=== PATIENT | male | born 1955 | race Caucasian/White ===

== ENCOUNTER → 2019-06-23 13:53 | Outpatient (BNVA) | payer MEDICARE, MEDICAID, SELFPAY | PROVIDERS: Family Provider Family Medicine; PCP Family Medicine; Visit Provider Anesthesiology | DX: M51.36 Other intervertebral disc degeneration, lumbar region (principal); M54.2 Cervicalgia; M25.511 Pain in right shoulder; M25.512 Pain in left shoulder; M15.9 Polyosteoarthritis, unspecified; G56.00 Carpal tunnel syndrome, unspecified upper limb; F17.210 Nicotine dependence, cigarettes, uncomplicated; Z79.891 Long term (current) use of opiate analgesic | CPT/HCPCS: 99214 ==

== ENCOUNTER → 2019-08-12 13:12 | Outpatient (BNVA) | payer MEDICARE, MEDICAID, SELFPAY | PROVIDERS: Family Provider Family Medicine; PCP Family Medicine; Visit Provider Anesthesiology | DX: Z76.89 Persons encountering health services in other specified circumstances (principal) ==

== ENCOUNTER → 2019-10-13 09:54 | Outpatient (BNVA) | payer MEDICARE, MEDICAID, SELFPAY | PROVIDERS: Family Provider Family Medicine; PCP Family Medicine; Visit Provider Anesthesiology | DX: M54.41 Lumbago with sciatica, right side (principal); M54.42 Lumbago with sciatica, left side; M51.36 Other intervertebral disc degeneration, lumbar region; M15.9 Polyosteoarthritis, unspecified; F17.210 Nicotine dependence, cigarettes, uncomplicated; Z79.891 Long term (current) use of opiate analgesic | CPT/HCPCS: 99213; 99214 ==

== ENCOUNTER → 2019-12-16 09:00 | Outpatient (BNVA) | payer MEDICARE, MEDICAID, SELFPAY | PROVIDERS: Family Provider Family Medicine; PCP Family Medicine; Visit Provider Anesthesiology | DX: M51.36 Other intervertebral disc degeneration, lumbar region (principal); M15.9 Polyosteoarthritis, unspecified; F17.210 Nicotine dependence, cigarettes, uncomplicated; Z79.891 Long term (current) use of opiate analgesic; Z71.6 Tobacco abuse counseling | CPT/HCPCS: 99214 ==

== ENCOUNTER → 2020-02-11 14:28 | Outpatient (BNVA) | payer MEDICARE, MEDICAID, SELFPAY | PROVIDERS: Family Provider Family Medicine; PCP Family Medicine; Visit Provider Nurse Practitioner | DX: M54.42 Lumbago with sciatica, left side (principal); M54.41 Lumbago with sciatica, right side; M51.36 Other intervertebral disc degeneration, lumbar region; S16.1XXA Strain of muscle, fascia and tendon at neck level, initial encounter; X58.XXXA Exposure to other specified factors, initial encounter; M15.9 Polyosteoarthritis, unspecified; F17.210 Nicotine dependence, cigarettes, uncomplicated; Z79.891 Long term (current) use of opiate analgesic | CPT/HCPCS: 99213 ==

== ENCOUNTER → 2020-04-12 13:27 | Outpatient (BNVA) | payer MEDICARE, MEDICAID, SELFPAY | PROVIDERS: Family Provider Family Medicine; PCP Family Medicine; Visit Provider Anesthesiology | DX: M54.42 Lumbago with sciatica, left side (principal); M54.41 Lumbago with sciatica, right side; M51.36 Other intervertebral disc degeneration, lumbar region; M15.9 Polyosteoarthritis, unspecified; F17.210 Nicotine dependence, cigarettes, uncomplicated; Z79.891 Long term (current) use of opiate analgesic | CPT/HCPCS: 99213; 99214 ==

== ENCOUNTER → 2020-06-08 13:37 | Outpatient (BNVA) | payer MEDICARE, MEDICAID, SELFPAY | PROVIDERS: Family Provider Family Medicine; PCP Family Medicine; Visit Provider Anesthesiology | DX: G89.29 Other chronic pain (principal); M51.36 Other intervertebral disc degeneration, lumbar region; F17.210 Nicotine dependence, cigarettes, uncomplicated; Z79.891 Long term (current) use of opiate analgesic | CPT/HCPCS: 99213 ==

== ENCOUNTER → 2020-08-11 13:31 | Outpatient (BNVA) | payer MEDICARE, MEDICAID, SELFPAY | PROVIDERS: Family Provider Family Medicine; PCP Family Medicine; Visit Provider Anesthesiology | DX: G89.29 Other chronic pain (principal); M54.42 Lumbago with sciatica, left side; M54.41 Lumbago with sciatica, right side; M51.36 Other intervertebral disc degeneration, lumbar region; M54.9 Dorsalgia, unspecified; M54.2 Cervicalgia; M15.9 Polyosteoarthritis, unspecified; F17.210 Nicotine dependence, cigarettes, uncomplicated; Z71.6 Tobacco abuse counseling; Z79.891 Long term (current) use of opiate analgesic | CPT/HCPCS: 99214 ==

== ENCOUNTER → 2020-10-11 13:49 | Outpatient (BNVA) | payer MEDICARE, MEDICAID, SELFPAY | PROVIDERS: Family Provider Family Medicine; PCP Family Medicine; Visit Provider Anesthesiology | DX: G89.29 Other chronic pain (principal); M51.36 Other intervertebral disc degeneration, lumbar region; M54.2 Cervicalgia; M54.9 Dorsalgia, unspecified; F17.210 Nicotine dependence, cigarettes, uncomplicated; Z79.891 Long term (current) use of opiate analgesic | CPT/HCPCS: 99214 ==

== ENCOUNTER → 2020-12-08 13:55 | Outpatient (BNVA) | payer MEDICARE, MEDICAID, SELFPAY | PROVIDERS: Family Provider Family Medicine; PCP Family Medicine; Visit Provider Anesthesiology | DX: G89.29 Other chronic pain (principal); M51.36 Other intervertebral disc degeneration, lumbar region; M54.2 Cervicalgia; Z79.891 Long term (current) use of opiate analgesic | CPT/HCPCS: 99214 ==

== ENCOUNTER 2021-01-25 14:49 | Outpatient (CLI) | payer MEDICARE, MEDICAID, SELFPAY ==
--- NOTE | 2021-01-25 15:02 | XR_ITS ---
WS: [id number] XR hip BI 3-4V wo/w pel [id number] REASON FOR EXAM: BILATERAL HIP PAIN FINDINGS: Right hip joint: The right hip joint space is relatively well preserved. Mild osteophytosis of the acetabulum. Minimal subchondral sclerosis in the acetabulum. No subchondral bone abnormality in the femoral head. No bony abnormality in the remainder of the femur or within the bony pelvis. No soft tissue abnormality. Left hip joint: The left hip joint space is relatively well preserved. Mild osteophytosis of the acetabulum. Mild subchondral sclerosis in the acetabulum. No subchondral nicholas ne abnormality in the femoral head. No bony abnormality in the remainder of the femur or within the bony pelvis. XR/XR hip BI 3-4V wo/w pel [id number] IMPRESSION: Minimal arthropathy, symmetric, in the hip joints.
--- NOTE | 2021-01-25 15:02 | XR_ITS ---
WS: [id number] XR lumbar spine 2-3V* [id number] REASON FOR EXAM: CERVICALGIA/ INTERVERTEBRAL DISC DEGENERATION,LUMBAR REGION FINDINGS: Mild wedge-shaped deformity of the L1 vertebral body. No focal lumbar vertebral body lesion. Mild narrowing of the L1-L2 disc space. Moderately severe narrowing of the L5-S1 disc space. No spondylolisthesis or spondylolysis identified. XR/XR lumbar spine 2-3V* [id number] IMPRESSION: Degenerative disc disease at L1-L2 and L5-S1.
--- NOTE | 2021-01-25 15:02 | XR_ITS ---
WS: [id number] XR cervical spine 3V* [id number] REASON FOR EXAM: CHRONIC NECK PAIN/CERVICALGIA FINDINGS: No cervical vertebral body compression deformity or focal lesion. The disc space intervals are relatively well preserved. Facet joints are normal and demonstrate normal alignment. Incidentally noted are calcifications in the neck compatible with calcified plaque in the bifurcation of the common carotid arteries. XR/XR cervical spine 3V* [id number] IMPRESSION: No significant findings in the cervical spine. Calcified carotid plaque.
== END 2021-01-25 14:50 | disposition home or self-care (01) ==
LOC: RAD 14:56
PROVIDERS: PCP Family Medicine; Visit Provider Nurse Practitioner Family
DX: M54.2 Cervicalgia (principal); M25.551 Pain in right hip; M51.36 Other intervertebral disc degeneration, lumbar region; M51.37 Other intervertebral disc degeneration, lumbosacral region; I65.29 Occlusion and stenosis of unspecified carotid artery
CPT/HCPCS: 72040; 72100; 73522

== ENCOUNTER → 2021-02-02 14:31 | Outpatient (BNVA) | payer MEDICARE, MEDICAID, SELFPAY | PROVIDERS: PCP Family Medicine; Visit Provider Anesthesiology | DX: G89.29 Other chronic pain (principal); M51.36 Other intervertebral disc degeneration, lumbar region; M54.2 Cervicalgia; F17.210 Nicotine dependence, cigarettes, uncomplicated; Z79.891 Long term (current) use of opiate analgesic | CPT/HCPCS: 99214 ==

== ENCOUNTER → 2021-03-30 14:40 | Outpatient (BNVA) | payer MEDICARE, MEDICAID, SELFPAY | PROVIDERS: PCP Family Medicine; Visit Provider Anesthesiology | DX: G89.29 Other chronic pain (principal); M54.2 Cervicalgia; M15.9 Polyosteoarthritis, unspecified; M51.36 Other intervertebral disc degeneration, lumbar region; F17.210 Nicotine dependence, cigarettes, uncomplicated; Z79.891 Long term (current) use of opiate analgesic | CPT/HCPCS: 99214 ==

== ENCOUNTER 2021-04-14 13:08 | Outpatient (CLI) | payer MEDICARE, MEDICAID, SELFPAY ==
--- NOTE | 2021-04-14 13:13 | XR_ITS ---
WS: [id number] Thoracic spine, 3 views, 04/14/2021 Clinical Data: THORACIC SPRAIN Comparison: None. Findings: No compression fractures are seen. The disc heights are normal. Midline sternotomy sutures and mediastinal clips are present. The paravertebral regions are normal. XR/XR thoracic spine 2V [id number] Impression: Negative thoracic spine.
--- NOTE | 2021-04-14 13:13 | XR_ITS ---
WS: [id number] Cervical spine, lateral views, AP and odontoid views, both obliques, 04/14/2021 . Clinical Data: CERVICAL STRAIN Comparison: None. Findings: No compression fractures are seen. The disc heights are normal. Minimal osteoarthritis at t he anterior aspect of C5 is seen. There is no prevertebral soft tissue swelling. The odontoid is unre markable. The soft tissues of the neck and the lung apices are normal. The oblique films show no spon dylolysis. There is calcification at the level of the carotid bifurcations. XR/XR cervical spine 4-5V [id number] Impression: 1. Minimal C5 osteoarthritis. 2. Minimal calcification at both carotid bifurcations.
== END 2021-04-14 13:09 | disposition home or self-care (01) ==
LOC: RAD 13:11
PROVIDERS: PCP Family Medicine; Visit Provider Nurse Practitioner Family
DX: M54.6 Pain in thoracic spine (principal); M47.812 Spondylosis without myelopathy or radiculopathy, cervical region; I65.23 Occlusion and stenosis of bilateral carotid arteries
CPT/HCPCS: 72050; 72070

== ENCOUNTER → 2021-06-08 13:46 | Outpatient (BNVA) | payer MEDICARE, MEDICAID, SELFPAY | PROVIDERS: PCP Family Medicine; Visit Provider Anesthesiology | DX: G89.29 Other chronic pain (principal); M54.2 Cervicalgia; M54.50 Low back pain, unspecified; Z79.891 Long term (current) use of opiate analgesic; Z87.891 Personal history of nicotine dependence | CPT/HCPCS: 99214 ==

== ENCOUNTER 2021-12-06 14:20 | Inpatient (IN) | payer MEDICARE, MEDICAID, SELFPAY ==
[2021-12-06] VITALS (7 sets, daily range): BP systolic 130–185; BP diastolic 74–83; PULSE 71–91; RESP 16–18; TEMP 36.6–36.9; O2SAT 98–99; BMI 22.8
--- NOTE | 2021-12-06 14:30 | CTR_ITS ---
PROCEDURE INFORMATION: Exam: CT Abdomen And Pelvis With Contrast Exam date and time: 12/06/2021 5:29 PM Age: 66 years old Clinical indication: Abdominal pain; Generalized; Prior surgery; Additional info: Abd pain TECHNIQUE: Imaging protocol: Computed tomography of the abdomen and pelvis with contrast. Radiation optimization: All CT scans at this facility use at least one of these dose optimization techniques: automated exposure control; mA and/or kV adjustment per patient size (includes targeted exams where dose is matched to clinical indication); or iterative reconstruction. Contrast material: OMNI 350; Contrast volume: 95 ml; Contrast route: INTRAVENOUS (IV); COMPARISON: CT Abdomen/Pelvis Renal [id number] 07/22/2017 8:10 AM RADIATION DOSE METRICS: Total DLP (mGy-cm): 569.08 FINDINGS: Pleural spaces: Interval appearance of mild to moderate left pleural fluid collection. Heart: Stable severe calcified coronary artery disease. Liver: Hepatic cirrhosis morphology with nodular contour and/or caudate lobe enlargement and/or left lobe enlargement. Interval appearance of radiographic cirrhosis. Gallbladder and bile ducts: Normal. No calcified stones. No ductal dilation. Pancreas: Normal. No ductal dilation. Spleen: Calcified splenic granulomas. 16.2 cm moderate to large splenomegaly. Adrenal glands: Normal. No mass. Kidneys and ureters: Normal. No hydronephrosis. Stomach and bowel: Unremarkable. No obstruction. No mucosal thickening. Appendix: No evidence of appendicitis. Intraperitoneal space: Mild to moderate four-quadrant ascites. Vasculature: 12 mm portal vein. Calcification of the abdominal aorta and/or iliac arteries consistent with atherosclerotic vessel disease. Lymph nodes: Unremarkable. No enlarged lymph nodes. Urinary bladder: Unremarkable as visualized. Reproductive: Unremarkable as visualized. Bones/joints: Previous sternotomy. Soft tissues: Right inguinal hernia containing ascites. CT/CT abdomen pelvis w con* [id number] IMPRESSION: 1. Interval appearance of mild to moderate left pleural fluid collection. 2. Interval appearance of radiographic cirrhosis with [id number]-[id number] ascites and moderate to large 16.2 cm splenomegaly.
--- NOTE | 2021-12-06 14:31 | W.ED.ABDPA2 ---
Documented by User: Bucky Malloy DO 12/12/21 07:08 HPI - Abdominal Pain General: Chief Complaint: Abdominal Pain Stated Complaint: Abd pain Time Seen by Provider: 12/06/21 14:29 Source: patient Mode of arrival: ambulatory Limitations: no limitations History of Present Illness: 66-year-old male who presents to the emergency room with complaints of abdominal pain. He was seen earlier today Dr. Rockwell office with complaints of right inguinal pain intermittently for the last 3 weeks, much worse in the last 3 to 4 days.. On arrival there he had a right inguinal's distended mass that was exquisitely tender with a very tender abdomen. He had good bowel sounds however and had a bowel movement a few hours earlier. Dr. Rockwell position him in a gxab-qs-hocve position had him remain in that position for a period of time he spontaneously reduced his hernia and the abdominal distention present on arrival at the clinic resolved. He is had significant relief of symptoms and since as well. He had a left inguinal hernia repaired by Dr. Gilman within the last year. Dr. Rockwell talk to Dr. Robins about this patient and Dr. Wills advised to get further evaluation including advanced imaging to see if he would if there was any signs of bowel injury or edema might indicate earlier intervention for repair of hernia. MD elicited complaint: abdominal pain Pertinent past history: other (Right inguinal hernia) Onset (ago): week(s) Pain Consistency: intermittent Location: Diffuse Severity: severe Quality: cramping Radiation: none Exacerbating factors: nothing Relieving factors: nothing Associated Symptoms: Denies bloating, chills, coffee ground emesis, constipation, diarrhea, dysuria, fever(s), hematochezia, hematemesis, melena, nausea and vomiting Review of Systems Const: Denies: fever(s), chills, body aches, change in appetite, fatigue or malaise ENMT: Denies: throat pain, ear or mastoid pain, nasal discharge or nasal congestion Card: Denies: chest pain, edema, dyspnea on exertion or orthopnea Resp: Denies: dyspnea, productive cough or non-productive cough GI: Reports: abdominal pain; Denies: nausea, vomiting, hematemesis, coffee ground emesis, diarrhea, constipation, bloating, hematochezia or melena : Denies: flank pain, difficulty urinating, dysuria, urinary frequency or urinary urgency Skin/Breast: Denies: rash or pruritus PFSH ED PFSH: Medical History CAD (coronary artery disease) Carpal tunnel syndrome Chronic low back pain Chronic neck and back pain Cigarette smoker motivated to quit Controlled type 2 diabetes mellitus with diabetic neuropathy DDD (degenerative disc disease), lumbar Encounter for long-term opiate analgesic use Generalized osteoarthritis Genital warts on topical treatment with imiquimod H/O: HTN (hypertension) History of asthma Hx of acute arthritis Hx of diabetes mellitus Neck pain Surgical History Hx of angioplasty Hx of coronary artery bypass surgery Family History Other CAD (coronary artery disease) Diabetes Hypertension Social History Smoking and tobacco status: former smoker (2 weeks ago) Second hand smoke exposure: No Alcohol intake: former History of recent travel: No Physical Exam Const: GENERAL APPEARANCE: cooperative and comfortable ORIENTATION/CONSCIOUSNESS: Yes awake, Yes oriented to person, Yes oriented to place and Yes oriented to time HENMT: COMMON NORMALS: normocephalic, atraumatic and hearing grossly normal bilaterally HEAD & SCALP: normocephalic and atraumatic Resp: COMMON NORMALS: normal respiratory effort, No retractions, No use of accessory muscles and clear to auscultation bilaterally AUSCULTATION: clear to auscultation bilaterally Cardio: COMMON NORMALS: regular rate, regular rhythm and No murmurs present (Cardio) RATE: regular rate RHYTHM: regular rhythm GI: COMMON NORMALS: Soft to palpation and No hepatosplenomegaly present AUSCULTATION: Yes normoactive bowel sounds PALPATION: Yes Soft to palpation, No Tenderness to palpation present (GI), No Guarding due to palpation present (GI) and Yes No hepatosplenomegaly present Extremity: COMMON NORMALS: normal to inspection, capillary refill normal, no clubbing, cyanosis or edema, no calf tenderness and no pedal edema Neuro: SENSORIUM/ORIENTATION: Yes oriented to person, Yes oriented to place and Yes oriented to time Skin: COMMON NORMALS: no rashes or lesions noted GENERAL SKIN EXAM: no rashes or lesions noted Course Vital Signs: Vital signs: Vital Signs Temperature 98.4 F 12/06/21 23:10 Pulse Rate 91 12/06/21 23:10 Respiratory Rate 18 12/06/21 23:10 Blood Pressure 130/79 12/06/21 23:10 Pulse Oximetry 98 12/06/21 23:10 Oxygen Delivery Me thod 12/06/21 23:10 MDM - Abdominal Pain Medical Decision Making Hernia resolved the time patient arrived here which is what Dr. Rockwell is described. CT is pending radiology read appears to have a fair amount of ascites. Pending results. Once radiologist read the CT Dr. Cormier will make disposition for the patient. See his notes. 66-year-old male presents here with abdominal pain he does have inguinal hernia along with ascites CT shows no signs of strangulation. Patient is stable for discharge is to follow-up PCP and return if worsening. Medical Records I reviewed the patient's medical records. Lab Data I reviewed the patient's lab results. : 12/06/21 15:07 12/06/21 15:07 Labs/Radiology: Radiology Impressions Abdomen/Pelvis CT 12/06/21 14:30 IMPRESSION: 1. Interval appearance of mild to moderate left pleural fluid collection. 2. Interval appearance of radiographic cirrhosis with dolf-[id number]-bsjlsezq ascites and moderate to large 16.2 cm splenomegaly. Laboratory Results WBC 8.0 10^3/uL (4.0-10.0) 12/06/21 15:07 RBC 4.70 10^6/uL (4.1-5.3) 12/06/21 15:07 Hgb 14.9 g/dL (11.7-16.6) 12/06/21 15:07 Hct 46.3 % (42.0-52.0) 12/06/21 15:07 MCV 98.5 fl (80-94) H 12/06/21 15:07 MCH 31.7 pg (28.0-34.0) 12/06/21 15:07 MCHC 32.2 g/dL (30.0-36.0) 12/06/21 15:07 RDW 14.0 % (12.1-15.1) 12/06/21 15:07 Plt Count 99 10^3/cmm (130-400) L 12/06/21 15:07 MPV 11.6 fL (7.4-10.4) H 12/06/21 15:07 Neut % (Auto) 73.4 % 12/06/21 15:07 Lymph % (Auto) 16.2 % 12/06/21 15:07 [place] % (Auto) 7.2 % 12/06/21 15:07 Eos % (Auto) 2.1 % 12/06/21 15:07 Baso % (Auto) 0.6 % 12/06/21 15:07 Neut # (Auto) 5.85 10^3/uL (1.8-7.7) 12/06/21 15:07 Lymph # (Auto) 1.3 10^3/uL (0.8-4.8) 12/06/21 15:07 [place] # (Auto) 0.6 10^3/uL (0.2-0.9) 12/06/21 15:07 Eos # (Auto) 0.2 10^3/uL (0.0-0.8) 12/06/21 15:07 Baso # (Auto) 0.1 10^3/uL (0.0-0.1) 12/06/21 15:07 Nucleated RBC % (auto) 0 % 12/06/21 15:07 Nucleated RBCs # 0.0 /100WBC 12/06/21 15:07 Sodium 138 mmol/L (136-145) 12/06/21 15:07 Potassium 5.3 mmol/L (3.5-5.1) H 12/06/21 15:07 Chloride 102 mmol/L (98-107) 12/06/21 15:07 Carbon Dioxide 26 mmol/L (22-29) 12/06/21 15:07 Anion Gap 15.3 (5-19) 12/06/21 15:07 BUN 18 mg/dL (8-23) 12/06/21 15:07 Creatinine 0.6 mg/dL (0.7-1.2) L 12/06/21 15:07 GFR Calculation 135.2 mL/min (90-130) H 12/06/21 15:07 Glucose 217 mg/dL (65-115) H 12/06/21 15:07 Calculated Osmolality 294 mOsm/kg (285-295) 12/06/21 15:07 Lactic Acid 1.5 mmol/L (0.5-2.2) 12/06/21 15:07 Calcium 9.6 mg/dL (8.5-10.5) 12/06/21 15:07 Total Bilirubin 2.5 mg/dL (0.15-1.2) H 12/06/21 15:07 AST 94 U/L (0-40) H 12/06/21 15:07 ALT 56 U/L (0-41) H 12/06/21 15:07 Alkaline Phosphatase 698 IU/L (40-130) H 12/06/21 15:07 Total Protein 7.5 g/dL (6.6-8.7) 12/06/21 15:07 Albumin 3.7 g/dL (3.5-5.2) 12/06/21 15:07 Globulin 3.8 g/dL (1.3-4.6) 12/06/21 15:07 Urine Color Svetlana (Yellow) 12/06/21 14:58 Urine Appearance Clear (CLEAR) 12/06/21 14:58 Urine pH 5 (5-7) 12/06/21 14:58 Ur Specific [place] 1.015 (1.005-1.030) 12/06/21 14:58 Urine Protein Neg (Negative) 12/06/21 14:58 Urine Glucose (UA) 4+ (Normal) H 12/06/21 14:58 Urine Ketones Negative (Negative) 12/06/21 14:58 Urine Blood Neg (Negative) 12/06/21 14:58 Urine Nitrate Negative (Negative) 12/06/21 14:58 Urine Bilirubin 1+ (Negative) H 12/06/21 14:58 Urine Urobilinogen 1 mg/dL (Negative) H 12/06/21 14:58 Ur Leukocyte Esterase Negative (Negative) 12/06/21 14:58 Discharge Plan Discharge Patient Disposition: Admitted As Inpatient Admit Provider: Mere Naqvi Clinical Impression: Abdominal pain, Ascites Condition: Stable Coding Level of Care Code ED Bilingual Research Interviewer for Chg Fwd Exam Detailed Documented by User: Rachelle Cormier MD 12/06/21 21:42 HPI - Abdominal Pain General: Chief Complaint: Abdominal Pain Stated Complaint: Abd pain Time Seen by Provider: 12/06/21 14:29 PFSH ED PFSH: Medical History CAD (coronary artery disease) Carpal tunnel syndrome Chronic low back pain Chronic neck and back pain Cigarette smoker motivated to quit Controlled type 2 diabetes mellitus with diabetic neuropathy DDD (degenerative disc disease), lumbar Encounter for long-term opiate analgesic use Generalized osteoarthritis Genital warts on topical treatment with imiquimod H/O: HTN (hypertension) History of asthma Hx of acute arthritis Hx of diabetes mellitus Neck pain Surgical History Hx of angioplasty Hx of coronary artery bypass surgery Family History Other CAD (coronary artery disease) Diabetes Hypertension Social History Smoking and tobacco status: former smoker (2 weeks ago) Second hand smoke exposure: No Alcohol intake: former History of recent travel: No Course Vital Signs: Vital signs: Vital Signs Temperature 98.4 F 12/06/21 23:10 Pulse Rate 91 12/06/21 23:10 Respiratory Rate 18 12/06/21 23:10 Blood Pressure 130/79 12/06/21 23:10 Pulse Oximetry 98 12/06/21 23:10 Oxygen Delivery Me thod 12/06/21 23:10 MDM - Abdominal Pain Medical Decision Making 66-year-old male presents here with abdominal pain he does have inguinal hernia along with ascites CT shows no signs of strangulation. Patient is stable for discharge is to follow-up PCP and return if worsening. Lab Data : 12/06/21 15:07 12/06/21 15:07 Labs/Radiology: Radiology Impressions Abdomen/Pelvis CT 12/06/21 14:30 IMPRESSION: 1. Interval appearance of mild to moderate left pleural fluid collection. 2. Interval appearance of radiographic cirrhosis with gtkm-ii-lzdolmyn ascites and moderate to large 16.2 cm splenomegaly. Laboratory Results WBC 8.0 10^3/uL (4.0-10.0) 12/06/21 15:07 RBC 4.70 10^6/uL (4.1-5.3) 12/06/21 15:07 Hgb 14.9 g/dL (11.7-16.6) 12/06/21 15:07 Hct 46.3 % (42.0-52.0) 12/06/21 15:07 MCV 98.5 fl (80-94) H 12/06/21 15:07 MCH 31.7 pg (28.0-34.0) 12/06/21 15:07 MCHC 32.2 g/dL (30.0-36.0) 12/06/21 15:07 RDW 14.0 % (12.1-15.1) 12/06/21 15:07 Plt Count 99 10^3/cmm (130-400) L 12/06/21 15:07 MPV 11.6 fL (7.4-10.4) H 12/06/21 15:07 Neut % (Auto) 73.4 % 12/06/21 15:07 Lymph % (Auto) 16.2 % 12/06/21 15:07 [place] % (Auto) 7.2 % 12/06/21 15:07 Eos % (Auto) 2.1 % 12/06/21 15:07 Baso % (Auto) 0.6 % 12/06/21 15:07 Neut # (Auto) 5.85 10^3/uL (1.8-7.7) 12/06/21 15:07 Lymph # (Auto) 1.3 10^3/uL (0.8-4.8) 12/06/21 15:07 [place] # (Auto) 0.6 10^3/uL (0.2-0.9) 12/06/21 15:07 Eos # (Auto) 0.2 10^3/uL (0.0-0.8) 12/06/21 15:07 Baso # (Auto) 0.1 10^3/uL (0.0-0.1) 12/06/21 15:07 Nucleated RBC % (auto) 0 % 12/06/21 15:07 Nucleated RBCs # 0.0 /100WBC 12/06/21 15:07 Sodium 138 mmol/L (136-145) 12/06/21 15:07 Potassium 5.3 mmol/L (3.5-5.1) H 12/06/21 15:07 Chloride 102 mmol/L (98-107) 12/06/21 15:07 Carbon Dioxide 26 mmol/L (22-29) 12/06/21 15:07 Anion Gap 15.3 (5-19) 12/06/21 15:07 BUN 18 mg/dL (8-23) 12/06/21 15:07 Creatinine 0.6 mg/dL (0.7-1.2) L 12/06/21 15:07 GFR Calculation 135.2 mL/min (90-130) H 12/06/21 15:07 Glucose 217 mg/dL (65-115) H 12/06/21 15:07 Calculated Osmolality 294 mOsm/kg (285-295) 12/06/21 15:07 Lactic Acid 1.5 mmol/L (0.5-2.2) 12/06/21 15:07 Calcium 9.6 mg/dL (8.5-10.5) 12/06/21 15:07 Total Bilirubin 2.5 mg/dL (0.15-1.2) H 12/06/21 15:07 AST 94 U/L (0-40) H 12/06/21 15:07 ALT 56 U/L (0-41) H 12/06/21 15:07 Alkaline Phosphatase 698 IU/L (40-130) H 12/06/21 15:07 Total Protein 7.5 g/dL (6.6-8.7) 12/06/21 15:07 Albumin 3.7 g/dL (3.5-5.2) 12/06/21 15:07 Globulin 3.8 g/dL (1.3-4.6) 12/06/21 15:07 Urine Color Svetlana (Yellow) 12/06/21 14:58 Urine Appearance Clear (CLEAR) 12/06/21 14:58 Urine pH 5 (5-7) 12/06/21 14:58 Ur Specific [place] 1.015 (1.005-1.030) 12/06/21 14:58 Urine Protein Neg (Negative) 12/06/21 14:58 Urine Glucose (UA) 4+ (Normal) H 12/06/21 14:58 Urine Ketones Negative (Negative) 12/06/21 14:58 Urine Blood Neg (Negative) 12/06/21 14:58 Urine Nitrate Negative (Negative) 12/06/21 14:58 Urine Bilirubin 1+ (Negative) H 12/06/21 14:58 Urine Urobilinogen 1 mg/dL (Negative) H 12/06/21 14:58 Ur Leukocyte Esterase Negative (Negative) 12/06/21 14:58 Discharge Plan Discharge Patient Disposition: Admitted As Inpatient Admit Provider: Mere Naqvi Clinical Impression: Abdominal pain, Ascites Condition: Stable Coding Level of Care Code ED Bilingual Research Interviewer for Chg Fwd Exam Detailed
[2021-12-06 15:07] LABS: Add Urine Microscopic? NO; Charge for UA Resulting for Rev
[2021-12-06 15:24] LABS: Basophils # 0.1 10^3/uL (0.0-0.1); Basophils % 0.6 %; Eosinophils # 0.2 10^3/uL (0.0-0.8); Eosinophils % 2.1 %; Hematocrit 46.3 % (42.0-52.0); Hemoglobin 14.9 g/dL (11.7-16.6); Lymphocytes # 1.3 10^3/uL (0.8-4.8); Lymphocytes % 16.2 %; Mean Corpuscular HGB Conc 32.2 g/dL (30.0-36.0); Mean Corpuscular Hemoglobin 31.7 pg (28.0-34.0); Mean Corpuscular Volume 98.5 fl (80-94); Mean Platelet Volume 11.6 fL (7.4-10.4); Monocytes # 0.6 10^3/uL (0.2-0.9); Monocytes % 7.2 %; Neutrophils # 5.85 10^3/uL (1.8-7.7); Neutrophils % 73.4 %; Nucleated Red Blood Cells % 0 %; Platelet Count 99 10^3/cmm (130-400)
[2021-12-06 15:29] LABS: Bilirubin Urine 1+ (Negative); Blood Urine Neg (Negative); Glucose Urine UA 4+ (Normal); Ketones Urine Negative (Negative); Leukocyte Esterase Urine Negative (Negative); Nitrate Urine Negative (Negative); Protein Urine Neg (Negative); Specific Gravity, Urine 1.015 (1.005-1.030); Urine Appearance Clear (CLEAR); Urine Color Amber (Yellow); Urobilinogen Urine 1 mg/dL (Negative); pH Urine 5 (5-7)
[2021-12-06 15:40] LABS: Lactic Sepsis W/Reflex 1.5 mmol/L (0.5-2.2)
[2021-12-06 15:48] LABS: Albumin Level 3.7 g/dL (3.5-5.2); Alkaline Phosphatase 698 IU/L (40-130); Blood Urea Nitrogen 18 mg/dL (8-23); Calcium 9.6 mg/dL (8.5-10.5); Carbon Dioxide 26 mmol/L (22-29); Chloride 102 mmol/L (98-107); Globulin 3.8 g/dL (1.3-4.6); Glomerular Filtration Rate 135.2 mL/min (90-130); Glucose 217 mg/dL (65-115); Osmolality Calculated 294 mOsm/kg (285-295); Sodium 138 mmol/L (136-145); Total Bilirubin 2.5 mg/dL (0.15-1.2); Total Protein 7.5 g/dL (6.6-8.7)
[2021-12-06 15:49] LABS: Creatinine Clr Calc Pharmacy 88.8745
[2021-12-06 15:50] LABS: Alanine Aminotransferase 56 U/L (0-41); Anion Gap 15.3 (5-19); Aspartate Amino Transferase 94 U/L (0-40); Potassium 5.3 mmol/L (3.5-5.1)
[2021-12-06] MEDS: diphenhydrAMINE 50 mg/mL SDV 1mL IVP (17:09)
[2021-12-06] MEDS: iohexol 350 mg/mL 100 mL Btl IV (17:32)
[2021-12-06] MEDS: morphine 4 mg/mL SDV 1 mL IVP (19:28)
--- NOTE | 2021-12-06 22:08 | USCV_ITS ---
Altaf Rascon Age: 66 Gender: M : 1955 Exam Date: 12/06/2021 23:22 Ordering Phys: Mere Naqvi MD Technologist: ZACHERY [place] [facility] [place]: evaluate for right heart failure BP: 182 / 78 HR: 91 Rhythm: Sinus Technical Quality: Adequate MEASUREMENTS (Male / Female) Normal Values 2D ECHO LV Diastolic Diameter PLAX 4.8 cm 4.2 - 5.9 / 3.9 - 5.3 cm LV Systolic Diameter PLAX 2.9 cm IVS Diastolic Thickness 0.9 cm 0.6 - 1.0 / 0.6 - 0.9 cm IVS Systolic Thickness 1.6 cm LVPW Diastolic Thickness 1.0 cm 0.6 - 1.0 / 0.6 - 0.9 cm LVPW Systolic Thickness 1.4 cm LVOT Diameter 1.9 cm LV Ejection Fraction 2D Teich 70.1 % LV Ejection Fraction MOD 2C 77.0 % LV Ejection Fraction 2C AL 78.9 % LA Diameter 4.6 cm LA Width 3.6 cm LA Height 5.5 cm RA Width 2.8 cm RA Height 4.2 cm Aorta at Sinotubular Diameter 3.1 cm IVC Diameter 1.1 cm M-MODE Aortic Annulus Diameter 3.4 cm LA Ao Ratio MM 1.3 MV E Point Septal Separation 0.2 cm DOPPLER AV Peak Velocity 145.0 cm/s LVOT Peak Velocity 93.0 cm/s AV Area Cont Eq vti 1.7 cm squared AV Area Cont Eq pk 1.9 cm squared MV Area PHT 3.7 cm squared Mitral E to A Ratio 1.0 MV E' Velocity 59.0 cm/s Mitral E to MV E' Ratio 10.7 Mitral E to LV E' Lateral Ratio 8.1 Mitral E to LV E' Septal Ratio 15.5 TR Peak Velocity 275.0 cm/s TR Peak Gradient 30.3 mmHg TV Peak E Velocity 75.0 cm/s Right Atrial Pressure 5.0 mmHg Pulmonary Artery Systolic Pressu 35.3 mmHg PV Peak Velocity 120.0 cm/s RV Acceleration Time 0.2 s RV Ejection Time 0.4 s RV AcT/ET 0.4 FINDINGS Left Ventricle Normal left ventricular size and systolic function, EF 73 %. Mild left ventricular hypertrophy. Relative hypokinesia of the septum. Frequency and the duration of these episodes have not changed.Grade II/IV diastolic dysfunction, moderately elevated filling pressures. Right Ventricle Normal right ventricular size and systolic function. Right Atrium The right atrium is normal in size. Left Atrium The left atrium is normal in size. Mitral Valve No gross abnormalities noted Aortic Valve Thickened aortic valve. Tricuspid Valve Trace tricuspid valve regurgitation. Estimated pulmonary artery peak systolic pressure 35 mmHg Pulmonic Valve No gross abnormalities noted Pericardium Normal pericardium without effusion. Aorta Normal aortic annulus size. IVC Normal inferior vena cava. CONCLUSIONS Normal left ventricular size and systolic function, EF 73 %. Mild left ventricular hypertrophy. Grade II/IV diastolic dysfunction, moderately elevated filling pressures. Wall motion normalities as mentioned above. Normal right ventricular size and ejection fraction Thickened aortic valve. Trace tricuspid valve regurgitation. Estimated pulmonary artery peak systolic pressure 35 mmHg There is no pericardial effusion. There are no intracardiac masses. No similar previous studies are available for comparison Dr Nell Hilton MD [facility] (Electronically Signed) Final Date: 07 December 2021 19:13 S
--- NOTE | 2021-12-06 22:15 | PM.HP ---
Providers/Chief Complaint Admitting Physician: Mere Naqvi MD Primary Care Provider: Nathan Torres MD Chief Complaint: Abd pain History of Present Illness Altaf Rascon is a 66 year old male who developed abdominal pain today and presented to his PCPs office where he was noted to have a right inguinal hernia which was not easily reducible and quite painful. He was positioned in a [id number] position and ultimately the hernia was able to be reduced and patient was sent into the emergency room for abdominal imaging. He also was noted to have abdominal distention. Patient states he has been having increasing abdominal distention for the past couple of weeks but this has been waxing and waning independent of his inguinal hernia. CT of the abdomen was performed which showed a right inguinal hernia containing ascites and new findings of liver cirrhosis, portal hypertension, mild to moderate four-quadrant ascites and a left-sided pleural effusion. There was no ascites on last abdominal ultrasound dating back to 2019. Patient has had elevated LFTs for at least the past 3 to 4 years, no definite cause has been found for the same. Patient denies any current alcohol intake. States he has a history of alcohol dependence however quit drinking alcohol 15 years ago. His last drink was a beer 2 months ago. Denies any daily alcohol consumption. He follows with pain management and is currently on Percocet for pain management. He has previously used up to 3 to 4 g of Tylenol on a daily basis for pain. Has past medical history is significant for coronary artery disease, history of recurrent in-stent stenosis, CABG in 2016. He follows with Dr. Quintero in [place]. Does not know his last ejection fraction but states he has never previously been diagnosed with congestive heart failure. He is scheduled to undergo a stress test in the next few days, reportedly this was being planned for cardiac clearance prior to a colonoscopy with Dr. Gilman. No history of hemochromatosis or autoimmune disorder. Strong family history of colon cancer in multiple relatives. He is pending a colonoscopy. FOBT as outpatient has recently been positive. Gallbladder and bile ducts are noted to be normal without ductal dilatation. No pancreatic mass is additionally noted on the CT of the abdomen and pelvis today. Review of Systems General: Reports: 10 or more systems reviewed and unremarkable except in HPI and below Const: Denies: fever(s), chills or body aches Eyes: Denies: change in vision, blurry vision or photophobia ENMT: Reports: hoarseness; Denies: throat pain, enlarged tonsils, odynophagia or nasal congestion Card: Denies: chest pain, palpitations, irregular heart rhythm, edema, swelling of feet/ankles, lightheadedness, pre-syncope, dyspnea on exertion or orthopnea Resp: Denies: dyspnea, productive cough, non-productive cough, wheezing, stridor, pain on inspiration, change in phlegm color, hemoptysis or chest congestion GI: Denies: abdominal pain, nausea, vomiting, hematemesis, coffee ground emesis, dysphagia, heartburn, diarrhea, constipation, GI cramping, change in stool character, hematochezia or melena : Denies: flank pain, dysuria, urinary frequency, urinary urgency, urinary hesitancy or hematuria Musc: Denies: neck pain, back pain, extremity pain, joint swelling, joint warmth or deformity Neuro: Denies: headache(s), numbness in extremities, weakness in extremities, sensory changes, difficulty walking, frequent falls, dizziness, vertigo, behavioral changes, Slurred speech present or seizure-like activity Psych: Denies: anxiety, depression, suicidal ideation or homicidal ideation Endo: Denies: polyuria, polydipsia, tired all the time, cold intolerance or hot flashes Wilfredo/Lymph: Denies: easy bruising or easy bleeding Medications/Allergies Home Medications Medication Instructions Recorded Confirmed Last Taken Type aspirin 81 mg tablet,delayed 81 mg PO DAILY 06/23/19 12/06/21 12/06/21 08:00 History release glipizide 5 mg tablet, extended 5 mg PO DAILY 06/23/19 12/06/21 12/06/21 08:00 History release 24 hr sitagliptin 100 mg tablet (Januvia) 100 mg PO DAILY 06/23/19 12/06/21 12/06/21 08:00 History gabapentin 400 mg capsule 400 mg PO TID 30 days #90 caps 06/08/21 12/06/21 12/06/21 12:00 Rx alprazolam 0.5 mg tablet 0.25 - 0.5 mg PO Q8H PRN Anxiety 12/06/21 12/06/21 12/06/21 08:00 History atorvastatin 10 mg tablet 10 mg PO BEDTIME 12/06/21 12/06/21 12/05/21 21:00 History cetirizine 10 mg tablet 10 mg PO DAILY 12/06/21 12/06/21 12/06/21 08:00 History cyclobenzaprine 5 mg tablet 5 mg PO TID PRN Muscle Spasm 12/06/21 12/06/21 12/06/21 12:00 History dexlansoprazole 60 mg 60 mg PO BEDTIME 12/06/21 12/06/21 12/05/21 21:00 History capsule,biphase delayed release (Dexilant) fluticasone 250 mcg-salmeterol 50 1 inh inhalation BID 12/06/21 12/06/21 12/06/21 08:00 History mcg/dose blistr powdr for inhalation (Wixela Inhub) hydrocodone 10 mg-acetaminophen 1 tab PO Q4H PRN Pain 12/06/21 12/06/21 12/06/21 12:00 History 325 mg tablet montelukast 10 mg tablet 10 mg PO DAILY 12/06/21 12/06/21 12/06/21 08:00 History nitroglycerin 0.4 mg sublingual 0.4 mg sublingual PRN PRN Chest 12/06/21 12/06/21 Unknown History tablet Pain Allergies Allergy/AdvReac Type Severity Reaction Status Date / Time doxycycline Allergy ADR-Vomitin Verified 06/08/21 13:59 g metformin Allergy Unknown Verified 06/08/21 13:59 pantoprazole Allergy Unknown Verified 06/08/21 13:59 PFSH Acute PFSH: Medical History (Updated 12/07/21 @ 02:15 by Mere Naqvi MD) CAD (coronary artery disease) Carpal tunnel syndrome Chronic low back pain Chronic neck and back pain Cigarette smoker motivated to quit Controlled type 2 diabetes mellitus with diabetic neuropathy DDD (degenerative disc disease), lumbar Encounter for long-term opiate analgesic use Generalized osteoarthritis Genital warts on topical treatment with imiquimod H/O: HTN (hypertension) History of asthma Hx of acute arthritis Hx of diabetes mellitus Neck pain Surgical History Hx of angioplasty Hx of coronary artery bypass surgery Family History Other CAD (coronary artery disease) Diabetes Hypertension Social History Smoking and tobacco status: former smoker (2 weeks ago) Second hand smoke exposure: No Alcohol intake: former History of recent travel: No Vitals/I&O/Wt Last Vital Signs Temp 98.3 F 12/06/21 21:49 Pulse 91 12/06/21 21:49 Resp 18 12/06/21 21:49 BP 182/78 12/06/21 21:52 Pulse Ox 98 12/06/21 21:49 O2 Del Method 12/06/21 21:49 Weight last 48 hrs Weight 68.039 kg Physical Exam Narrative: General: No acute distress, AO x3 HEENT: PERRLA, pupils bilaterally equal and reactive, pallors not present Chest: Normal vesicular breath sounds, no added sounds, equal good air entry bilaterally CVS: S1-S2 regular, systolic murmur + Abdomen: Soft, distended, bowel sounds present, noted right inguinal hernia, no local erythema however reports tenderness on palpation. Neuro: No focal deficits, no facial deformity, AO x3, power 5/5 in all limbs Extremities:no edema, clubbing or cyanosis Data : 12/06/21 15:07 12/06/21 15:07 Other Labs: Radiology Impressions Abdomen/Pelvis CT 12/06/21 14:30 IMPRESSION: 1. Interval appearance of mild to moderate left pleural fluid collection. 2. Interval appearance of radiographic cirrhosis with [id number] ascites and moderate to large 16.2 cm splenomegaly. Laboratory Results WBC 8.0 10^3/uL (4.0-10.0) 12/06/21 15:07 RBC 4.70 10^6/uL (4.1-5.3) 12/06/21 15:07 Hgb 14.9 g/dL (11.7-16.6) 12/06/21 15:07 Hct 46.3 % (42.0-52.0) 12/06/21 15:07 MCV 98.5 fl (80-94) H 12/06/21 15:07 MCH 31.7 pg (28.0-34.0) 12/06/21 15:07 MCHC 32.2 g/dL (30.0-36.0) 12/06/21 15:07 RDW 14.0 % (12.1-15.1) 12/06/21 15:07 Plt Count 99 10^3/cmm (130-400) L 12/06/21 15:07 MPV 11.6 fL (7.4-10.4) H 12/06/21 15:07 Neut % (Auto) 73.4 % 12/06/21 15:07 Lymph % (Auto) 16.2 % 12/06/21 15:07 [place] % (Auto) 7.2 % 12/06/21 15:07 Eos % (Auto) 2.1 % 12/06/21 15:07 Baso % (Auto) 0.6 % 12/06/21 15:07 Neut # (Auto) 5.85 10^3/uL (1.8-7.7) 12/06/21 15:07 Lymph # (Auto) 1.3 10^3/uL (0.8-4.8) 12/06/21 15:07 [place] # (Auto) 0.6 10^3/uL (0.2-0.9) 12/06/21 15:07 Eos # (Auto) 0.2 10^3/uL (0.0-0.8) 12/06/21 15:07 Baso # (Auto) 0.1 10^3/uL (0.0-0.1) 12/06/21 15:07 Nucleated RBC % (auto) 0 % 12/06/21 15:07 Nucleated RBCs # 0.0 /100WBC 12/06/21 15:07 PT 15.10 SECONDS (12.1-14.9) H 12/06/21 23:08 INR 1.15 (0.8-1.2) 12/06/21 23:08 Sodium 138 mmol/L (136-145) 12/06/21 15:07 Potassium 5.3 mmol/L (3.5-5.1) H 12/06/21 15:07 Chloride 102 mmol/L (98-107) 12/06/21 15:07 Carbon Dioxide 26 mmol/L (22-29) 12/06/21 15:07 Anion Gap 15.3 (5-19) 12/06/21 15:07 BUN 18 mg/dL (8-23) 12/06/21 15:07 Creatinine 0.6 mg/dL (0.7-1.2) L 12/06/21 15:07 GFR Calculation 135.2 mL/min (90-130) H 12/06/21 15:07 Glucose 217 mg/dL (65-115) H 12/06/21 15:07 Calculated Osmolality 294 mOsm/kg (285-295) 12/06/21 15:07 Lactic Acid 1.5 mmol/L (0.5-2.2) 12/06/21 15:07 Calcium 9.6 mg/dL (8.5-10.5) 12/06/21 15:07 Total Bilirubin 2.5 mg/dL (0.15-1.2) H 12/06/21 15:07 AST 94 U/L (0-40) H 12/06/21 15:07 ALT 56 U/L (0-41) H 12/06/21 15:07 Alkaline Phosphatase 698 IU/L (40-130) H 12/06/21 15:07 Ammonia 36 umol/L (16-60) 12/06/21 23:08 Total Protein 7.5 g/dL (6.6-8.7) 12/06/21 15:07 Albumin 3.7 g/dL (3.5-5.2) 12/06/21 15:07 Globulin 3.8 g/dL (1.3-4.6) 12/06/21 15:07 Urine Color Svetlana (Yellow) 12/06/21 14:58 Urine Appearance Clear (CLEAR) 12/06/21 14:58 Urine pH 5 (5-7) 12/06/21 14:58 Ur Specific [place] 1.015 (1.005-1.030) 12/06/21 14:58 Urine Protein Neg (Negative) 12/06/21 14:58 Urine Glucose (UA) 4+ (Normal) H 12/06/21 14:58 Urine Ketones Negative (Negative) 12/06/21 14:58 Urine Blood Neg (Negative) 12/06/21 14:58 Urine Nitrate Negative (Negative) 12/06/21 14:58 Urine Bilirubin 1+ (Negative) H 12/06/21 14:58 Urine Urobilinogen 1 mg/dL (Negative) H 12/06/21 14:58 Ur Leukocyte Esterase Negative (Negative) 12/06/21 14:58 Acetaminophen < 5.0 ug/mL (10-30) L 12/06/21 23:08 Ethyl Alcohol < 10 mg/dL (0-10) 12/06/21 23:08 Hepatitis A IgM Ab Non-reactive (Nonreactive) 12/06/21 23:08 Hep Bs Antigen Non-reactive (Nonreactive) 12/06/21 23:08 Hep Bs Antibody 3.5 (11.5-1000) L 12/06/21 23:08 Hep B Core Total Ab Non-reactive (Nonreactive) 12/06/21 23:08 Hepatitis C Antibody Non-reactive (Nonreactive) 12/06/21 23:08 A&P Assessment and plan (1) Cirrhosis of liver: This is a new diagnosis for the patient. Findings of cirrhosis were not previously seen on ultrasound from 2019. Differential diagnosis for cirrhosis of liver at this time remains broad. This includes alcohol liver disease, chronic hepatitis, nonalcoholic fatty liver disease, congestive hepatopathy, autoimmune hepatitis and or sclerosing cholangitis. Check viral hepatitis serologies. Autoimmune screen with antimitochondrial antibodies, antinuclear and anti-smooth muscle antibodies. Transferrin saturation and plasma ferritin to evaluate for hemochromatosis. Echocardiogram to evaluate for right-sided heart failure/cor pulmonale and valvular disorders such as mitral stenosis or tricuspid regurgitations Portal vein diameter at 12 mm, associated splenomegaly also suspicious for portal hypertension Reports pain due to abdominal distention, will order for ultrasound-guided paracentesis in the a.m. with peritoneal fluid analysis. Further management based on results of above testing. Status: Acute (2) Inguinal hernia recurrent unilateral: Rght inguinal hernia, tender to palpation, not reducible today. No signs of obstruction or incareration at this time General surgery consult Status: Acute (3) Ascites: likely related to cirrhosis and portal HTN. Diagnostic testing as above Status: Acute Plan # COPD: Not currently exacerbated. DuoNeb every 6 hours and budesonide twice daily inhalation. #History of coronary artery disease: Continue aspirin 81 mg p.o. daily. Hold atorvastatin for now. #Diabetes mellitus: Low-dose insulin sliding scale. Attestations Medical Necessity Statement*: Greater than 2 midnight admission is anticipated for above defined care. Coding Level of Care Code Acute [employer] for [facility] [employer] [employer] [facility] [employer] Diagnoses Cirrhosis of liver K74.60 Inguinal hernia recurrent unilateral K40.91 Ascites R18.8
[2021-12-06] MEDS: HYDROcodone-acetaminophen 10-325 mg Tablet 1 TAB PO (23:19)
[2021-12-06] MEDS: famotidine 20 mg/2 mL INJ IVP (23:20)
[2021-12-06 23:30] LABS: INR 1.15 (0.8-1.2)
[2021-12-06 23:37] LABS: Ammonia 36 umol/L (16-60)
[2021-12-06 23:39] LABS: Acetaminophen < 5.0 ug/mL (10-30); Alcohol Level < 10 mg/dL (0-10)
[2021-12-07 00:02] LABS: Hepatitis A Antibody IgM Non-Reactive (Nonreactive); Hepatitis B Core AB, Total Non-Reactive (Nonreactive); Hepatitis B Surface AB 3.5 (11.5-1000); Hepatitis B Surface Antigen Non-Reactive (Nonreactive); Hepatitis C Virus Antibody Non-Reactive (Nonreactive)
[2021-12-07 02:29] LABS: Total Bilirubin 2.9 mg/dL (0.15-1.2)
--- NOTE | 2021-12-07 02:37 | PC.NURSE ---
Pt stated I want my IV out now I am going home. Pt wanted coffee and a morphine shot. This nurse explained to pt that he had a NPO order and what NPO meant. This nurse also told pt that he did have morphine as needed for pain on JUL and it was no problem to get it and administer it. This nurse also told pt that MD could be called to see if pt could have coffee. Pt stated No I don't care I want to get the hell out of here. Take my IV out I am leaving. Pts IV was removed. Pt called family for ride, signed AMA paper and walked out. notified.
[2021-12-07 03:24] LABS: Ferritin 395 ng/mL (30-400); NT Pro B Type Natriuretic Pept 358 pg/mL (0-125); Transferrin 207 mg/dL (200-360)
[2021-12-08 13:03] LABS: COMPLEMENT COMPONENT C3C 169 mg/dL (82-185); COMPLEMENT COMPONENT C4C 36 mg/dL (15-53)
[2021-12-08 14:06] LABS: CENTROMERE B ANTIBODY <1.0 NEG AI (<1.0 NEG); JO-1 ANTIBODY <1.0 NEG AI (<1.0 NEG); RNP ANTIBODY <1.0 NEG AI (<1.0 NEG); SCL-70 ANTIBODY <1.0 NEG AI (<1.0 NEG); SJOGREN'S ANTIBODY (SS-A) <1.0 NEG AI (<1.0 NEG); SM ANTIBODY <1.0 NEG AI (<1.0 NEG); SS-B <1.0 NEG AI (<1.0 NEG)
[2021-12-08 14:36] LABS: COMPLEMENT, TOTAL (CH50) >60 U/mL (31-60)
[2021-12-08 18:18] LABS: THYROID PEROXIDASE ANTIBODIES <1 IU/mL (<9)
[2021-12-09 08:38] LABS: ANA SCREEN, IFA NEGATIVE (NEGATIVE)
[2021-12-12 14:46] LABS: DNA AB (DS) CRITHIDIA,IFA NEGATIVE (NEGATIVE)
== END 2021-12-07 03:16 | disposition left against medical advice (07) | DRG 433 ==
LOC: ER 19:05 → MEDSURG 20:13
PROVIDERS: Family Medicine; Nurse Practitioner Family; Admitting Provider Student in an Organized Health Care Education/Training Program; Emergency Provider Emergency Medicine; PCP Family Medicine; Visit Provider Student in an Organized Health Care Education/Training Program
DX: K74.60 Unspecified cirrhosis of liver (principal); J90 Pleural effusion, not elsewhere classified; K76.6 Portal hypertension; R18.8 Other ascites; K40.91 Unilateral inguinal hernia, without obstruction or gangrene, recurrent; I25.10 Atherosclerotic heart disease of native coronary artery without angina pectoris; E11.40 Type 2 diabetes mellitus with diabetic neuropathy, unspecified; F17.201 Nicotine dependence, unspecified, in remission; F10.21 Alcohol dependence, in remission; J44.9 Chronic obstructive pulmonary disease, unspecified; Z95.5 Presence of coronary angioplasty implant and graft; Z95.1 Presence of aortocoronary bypass graft; Z80.0 Family history of malignant neoplasm of digestive organs; Z79.82 Long term (current) use of aspirin; Z79.84 Long term (current) use of oral hypoglycemic drugs; Z79.891 Long term (current) use of opiate analgesic; Z53.29 Procedure and treatment not carried out because of patient's decision for other reasons
CPT/HCPCS: 74177; 80053; 80307; 81003; 82140; 82247; 82248; 82728; 83605; 83880; 84466; 85025; 85610; 86160; 86162; 86235; 86255; 86376; 86705; 86706; 86709; 86803; 87340; 93306; 96374; 96375; 99285; J1200; J2270; J2920; J3490; Q9967

== ENCOUNTER 2022-01-10 10:48 | Outpatient (CLI) | payer MEDICARE, MEDICAID, SELFPAY ==
[2022-01-10 12:28] LABS: Erythrocyte Sedimentation Rate 14 mm/hr (0-10)
[2022-01-10 12:29] LABS: C Reactive Protein 20.8 mg/L (0.0-4.9); Ferritin 335 ng/mL (30-400); Iron 46 ug/dL (59-158); Percent Saturation 20.7 % (20-50); Thyroid Stimulating Hormone 2.23 uIU/mL (0.27-4.20); Total Iron Binding Capacity 222 mcg/dl; Unsaturated Iron Binding 176 ug/dL (112-347)
[2022-01-10 12:51] LABS: Tumor Marker Alpha Fetoprotein 1.5 ng/mL (0-8.3)
[2022-01-10 14:39] LABS: Hepatitis A Antibody IgM Non-Reactive (Nonreactive); Hepatitis B Core AB, Total Non-Reactive (Nonreactive); Hepatitis B Surface AB 3.5 (11.5-1000); Hepatitis B Surface Antigen Non-Reactive (Nonreactive); Hepatitis C Virus Antibody Non-Reactive (Nonreactive)
[2022-01-14 21:57] LABS: Liver Kidney Microsome (LKM-1) <=20.0 U (<=20.0)
[2022-01-16 14:18] LABS: Anti-Nuclear Antibody Screen NEGATIVE (NEGATIVE)
[2022-01-16 15:18] LABS: Alpha 1 Antitrypsin 205 mg/dL (83-199)
[2022-01-16 15:56] LABS: Ceruloplasmin 33 mg/dL (18-36)
[2022-01-18 16:03] LABS: Smooth Muscle Ab Screen NEGATIVE (NEGATIVE)
== END 2022-01-10 10:49 | disposition home or self-care (01) ==
LOC: LAB 10:52
PROVIDERS: PCP Family Medicine; Visit Provider Internal Medicine
DX: K74.60 Unspecified cirrhosis of liver (principal); R18.8 Other ascites
CPT/HCPCS: 36415; 82103; 82105; 82390; 82728; 83516; 83540; 83550; 84443; 85651; 86038; 86140; 86376; 86705; 86706; 86709; 86803; 87340

== ENCOUNTER → 2022-02-08 15:41 | Outpatient (BNVA) | payer MEDICARE, MEDICAID, SELFPAY | PROVIDERS: PCP Family Medicine; Visit Provider Internal Medicine | DX: K74.60 Unspecified cirrhosis of liver (principal); R18.8 Other ascites | CPT/HCPCS: 80053; 83516 ==

== ENCOUNTER 2022-03-14 10:48 | Outpatient (CLI) | payer MEDICARE, MEDICAID, SELFPAY ==
--- NOTE | 2022-03-14 11:00 | MR_ITS ---
WS: [id number] MRCP (MAGNETIC RESONANCE CHOLANGIOPANCREATOGRAPHY) HISTORY: Labs consistent with sclerosing cholangitis. COMPARISON: CT 12/06/2021 TECHNIQUE: Multiple sequences are performed to evaluate the intra and extrahepatic ducts. This examination is limited by breathing artifact. There is also a small amount of ascites throughout the peritoneal cavity. LEFT lobe of the liver is slightly enlarged. Surface of the liver is irregula r and nodular. Spleen is mildly enlarged at 13.3 cm. Gallbladder is well distended without adjacent inflammation. No intrahepatic bile duct dilatation is evident. The common bile duct is normal caliber at approximately 5 mm. There is no significant beading or stricture in the common bile duct. Very li mited evaluation of the common hepatic duct and the intrahepatic ducts. Cannot evaluate for areas of dilatation and stricture that would be seen with sclerosing cholangitis. Limited evaluation of the pa ncreas. MR/MR MRCP [id number] IMPRESSION: 1. Very limited evaluation of the hepatic ducts due to breathing motion artifa ct. 2. The common bile duct is normal size with no evidence for dilatation or stri cture. 3. Hepatic duct and intrahepatic ducts are not well evaluated. 4. Cirrhotic appearance to the liver and splenomegaly. Findings suggestive of portal hypertension. 5. Small amount of ascites. 6. Cirrhotic liver.
== END 2022-03-14 10:49 | disposition home or self-care (01) ==
PROVIDERS: PCP Family Medicine; Visit Provider Internal Medicine
DX: K74.60 Unspecified cirrhosis of liver (principal); R18.8 Other ascites; R16.1 Splenomegaly, not elsewhere classified
CPT/HCPCS: 74181

== ENCOUNTER 2022-10-24 14:57 | Emergency (ER) | payer MEDICARE, MEDICAID, SELFPAY ==
[2022-10-24 15:03] VITALS: BP 123/60; PULSE 89; RESP 25; TEMP 36.8; O2SAT 100; BMI 25.4
--- NOTE | 2022-10-24 15:48 | W.ED.SOB ---
HPI - SOB/Dyspnea General: Chief Complaint: Shortness of Breath/Dyspnea Stated Complaint: BC sent for rapid weight gain Time Seen by Provider: 10/24/22 15:29 Source: patient Mode of arrival: ambulatory Limitations: no limitations History of Present Illness: HPI Narrative: Medical decision making: This 67-year-old male with a history of coronary artery disease, chronic back pain, type 2 diabetes and hypertension presents to the ER for evaluation of progressively worsening shortness of breath and weight gain over the last 3 weeks. Patient notes that he has gained about 20 pounds over the last 3 weeks and has also been experiencing worsening shortness of breath on exertion. Now, even taking a mild walk causes him to be short of breath. In addition, he has bilateral pitting pedal edema that has also progressively worsened. He has a history of coronary artery disease with multiple stent placements and had a CABG in 2017. He also has cough but denies fever, diarrhea or any other systemic symptoms. Associated symptoms: Deny chest pain or lightheadedness Review of Systems Const: Denies: chills, body aches or change in appetite Eyes: Denies: change in vision or eye discharge ENMT: Denies: throat pain, dental pain or nasal discharge Card: Reports: dyspnea on exertion and other (Leg swelling); Denies: chest pain or lightheadedness Resp: Reports: dyspnea (on exertion) and non-productive cough : Denies: dysuria Musc: Denies: neck pain or back pain Neuro: Denies: headache(s) or weakness in extremities Psych: Denies: depression Wilfredo/Lymph: Denies: easy bruising All/Imm: Denies: urticaria, tongue swelling or facial swelling PFS ED PFSH: Medical History CAD (coronary artery disease) Carpal tunnel syndrome Chronic low back pain Chronic neck and back pain Cigarette smoker motivated to quit Controlled type 2 diabetes mellitus with diabetic neuropathy DDD (degenerative disc disease), lumbar Encounter for long-term opiate analgesic use Generalized osteoarthritis Genital warts on topical treatment with imiquimod H/O: HTN (hypertension) History of asthma Hx of acute arthritis Hx of diabetes mellitus Neck pain Surgical History Hx of angioplasty Hx of coronary artery bypass surgery Family History Other CAD (coronary artery disease) Diabetes Hypertension Social History Smoking and tobacco status: current every day smoker cigarettes Packs smoked per day: 0.5 Second hand smoke exposure: No Alcohol intake: former Substance/Drug Use: never Physical Exam Const: COMMON NORMALS: no acute distress, patient oriented x3, no limitations and alert HENMT: COMMON NORMALS: normocephalic HEAD & SCALP: normocephalic Eye: COMMON NORMALS: EOMs intact bilaterally Neck/C-Spine: COMMON NORMALS: full ROM and supple Chest: COMMONS NORMALS: normal inspection of the chest OTHER: Mid sternotomy scar from a previous CABG Resp: COMMON NORMALS: normal respiratory effort, No retractions and No use of accessory muscles AUSCULTATION: wheezes (Faint, terminal expiratory wheeze.) and diminished lung sounds (left lower lung field) Cardio: COMMON NORMALS: regular rate, regular rhythm and No murmurs present (Cardio) RATE: regular rate RHYTHM: regular rhythm GI: COMMON NORMALS: Normal to inspection, nondistended, normoactive bowel sounds present and non-tender : COMMON NORMALS: Yes no CVA tenderness BLADDER/KIDNEY EXAM: Yes no CVA tenderness Back/Pelvis: COMMON NORMALS: no CVA tenderness and no thoracic nor lumbar tenderness Extremity: GENERAL: Yes normal exam except as noted OTHER: Bilateral pitting pedal edema Neuro: COMMON NORMALS: patient oriented x3 and no focal motor deficits SENSORIUM/ORIENTATION: Yes alert Psych: COMMON NORMALS: mental status grossly normal and cooperative Course Vital Signs: Vital signs: Vital Signs Temperature 98.2 F 10/24/22 15:03 Pulse Rate 88 10/24/22 20:59 Respiratory Rate 16 10/24/22 20:59 Blood Pressure 138/91 10/24/22 20:59 Pulse Oximetry 98 10/24/22 20:59 Oxygen Delivery Me thod Room Air 10/24/22 20:38 MDM - SOB/Dyspnea Medical Decision Making Medical decision making: This 67-year-old male presents to the ER with progressively worsening shortness of breath over the last couple of weeks. On exam, he has some expiratory wheeze and diminished breath sound on the left. X-ray showed a large left pleural effusion and consolidation in the left lung base. An underlying neoplastic process could not be excluded, so CT chest was recommended. CT chest showed no evidence of pulmonary embolism but demonstrates the large left pleural effusion with left lung atelectasis. No evidence of lung malignancy was seen. Patient also had a cirrhotic liver with splenomegaly and moderate ascites. Plan was to admit him but patient refused, stating that he would like to go home because he has 2 dogs and no one to take care of tehm. He said he will be back tomorrow. I made him aware that if he comes back tomorrow, he will go through the ER again prior to admission. He said he will call his surgeon (that fixed his hernia) to take care of him. He was advised to return if he changes his mind. He said his son will be coming into town sometime tomorrow afternoon. Then, there will be someone to take care of his dogs and he will be able to return. Lab Data 10/24/22 16:15 10/24/22 16:15 Labs/Radiology: Radiology Impressions Chest X-Ray 10/24/22 15:54 IMPRESSION: 1. Large left pleural effusion. 2. Consolidation in the left lung base and perihilar region. An underlying neoplastic process cannot be excluded, and follow-up with a CT chest with contrast is recommended. Chest CTA 10/24/22 18:54 IMPRESSION: 1. No evidence for pulmonary embolus. 2. No evidence for lung malignancy or other neoplastic process. 3. Large left pleural effusion with left lung atelectasis. 4. Ground-glass opacity in the left upper lobe could represent pulmonary edema or pneumonia. 5. Cirrhotic liver. 6. Splenomegaly. 7. Moderate ascites. 8. Body wall edema. Laboratory Results WBC 6.4 10^3/uL (4.0-10.0) 10/24/22 16:15 RBC 4.02 10^6/uL (4.1-5.3) L 10/24/22 16:15 Hgb 12.8 g/dL (11.7-16.6) 10/24/22 16:15 Hct 39.6 % (42.0-52.0) L 10/24/22 16:15 MCV 98.5 fl (80-94) H 10/24/22 16:15 MCH 31.8 pg (28.0-34.0) 10/24/22 16:15 MCHC 32.3 g/dL (30.0-36.0) 10/24/22 16:15 RDW 13.5 % (12.1-15.1) 10/24/22 16:15 Plt Count 89 10^3/cmm (130-400) L 10/24/22 16:15 MPV 11.3 fL (7.4-10.4) H 10/24/22 16:15 Neut % (Auto) 60.6 % 10/24/22 16:15 Lymph % (Auto) 21.7 % 10/24/22 16:15 [place] % (Auto) 10.7 % 10/24/22 16:15 Eos % (Auto) 5.5 % 10/24/22 16:15 Baso % (Auto) 0.9 % 10/24/22 16:15 Neut # (Auto) 3.86 10^3/uL (1.8-7.7) 10/24/22 16:15 Lymph # (Auto) 1.4 10^3/uL (0.8-4.8) 10/24/22 16:15 [place] # (Auto) 0.7 10^3/uL (0.2-0.9) 10/24/22 16:15 Eos # (Auto) 0.4 10^3/uL (0.0-0.8) 10/24/22 16:15 Baso # (Auto) 0.1 10^3/uL (0.0-0.1) 10/24/22 16:15 Nucleated RBC % (auto) 0 % 10/24/22 16:15 Nucleated RBCs # 0.0 /100WBC 10/24/22 16:15 Sodium 134 mmol/L (136-145) L 10/24/22 16:15 Potassium 4.6 mmol/L (3.5-5.1) 10/24/22 16:15 Chloride 102 mmol/L (98-107) 10/24/22 16:15 Carbon Dioxide 22 mmol/L (22-29) 10/24/22 16:15 Anion Gap 14.6 (5-19) 10/24/22 16:15 BUN 11 mg/dL (8-23) 10/24/22 16:15 Creatinine 0.8 mg/dL (0.7-1.2) 10/24/22 16:15 GFR Calculation 96.7 mL/min (90-130) 10/24/22 16:15 Glucose 127 mg/dL (65-115) H 10/24/22 16:15 Calculated Osmolality 279 mOsm/kg (285-295) L 10/24/22 16:15 Calcium 8.4 mg/dL (8.5-10.5) L 10/24/22 16:15 Total Bilirubin 1.9 mg/dL (0.15-1.2) H 10/24/22 16:15 AST 48 U/L (0-40) H 10/24/22 16:15 ALT 24 U/L (0-41) 10/24/22 16:15 Alkaline Phosphatase 384 U/L (40-130) H 10/24/22 16:15 Troponin T Gen 5 ng/L 53 ng/L (0-15) H 10/24/22 16:15 NT-Pro-B Natriuret Pep 477 pg/mL (0-125) H 10/24/22 16:15 Total Protein 6.6 g/dL (6.6-8.7) 10/24/22 16:15 Albumin 3.2 g/dL (3.5-5.2) L 10/24/22 16:15 Globulin 3.4 g/dL (1.3-4.6) 10/24/22 16:15 Urine Color Yellow (Yellow) 10/24/22 18:35 Urine Appearance Clear (CLEAR) 10/24/22 18:35 Urine pH 6 (5-7) 10/24/22 18:35 Ur Specific [place] 1.015 (1.005-1.030) 10/24/22 18:35 Urine Protein Neg (Negative) 10/24/22 18:35 Urine Glucose (UA) 2+ (Normal) H 10/24/22 18:35 Urine Ketones Negative (Negative) 10/24/22 18:35 Urine Blood Neg (Negative) 10/24/22 18:35 Urine Nitrate Negative (Negative) 10/24/22 18:35 Urine Bilirubin Neg (Negative) 10/24/22 18:35 Urine Urobilinogen Norm mg/dL (Negative) 10/24/22 18:35 Ur Leukocyte Esterase Negative (Negative) 10/24/22 18:35 EKG Data EKG 1: Interpretation: 1645 hrs.: Sinus rhythm, rate of 76, normal QRS normal axis, no STEMI. Discharge Plan Discharge Patient Disposition: Left Against Medical Advice Clinical Impression: Pleural effusion on left, Ascites Condition: Stable Prescriptions: No Action aspirin 81 mg tablet,delayed release (DR/EC) 81 mg PO DAILY glipizide 5 mg tablet extended release 24hr 5 mg PO DAILY Januvia 100 mg tablet 100 mg PO DAILY gabapentin 400 mg capsule 400 mg PO TID 30 Days Qty: 90 1RF hydrocodone-acetaminophen 10-325 mg tablet 1 tab PO Q4H PRN (Reason: Pain) alprazolam 0.5 mg tablet 0.25 - 0.5 mg PO Q8H PRN (Reason: Anxiety) Rx Instructions: Take 1/2 to 1 tablet every 8 hours as needed for anxiety nitroglycerin 0.4 mg tablet, sublingual 0.4 mg sublingual PRN PRN (Reason: Chest Pain) montelukast 10 mg tablet 10 mg PO DAILY cetirizine 10 mg tablet 10 mg PO DAILY atorvastatin 10 mg tablet 10 mg PO BEDTIME cyclobenzaprine 5 mg tablet 5 mg PO TID PRN (Reason: Muscle Spasm) Dexilant 60 mg capsule,biphase delayed releas 60 mg PO BEDTIME Wixela Inhub 250-50 mcg/dose blister with device 1 inh INHALATION BID Referrals: Nathan Torres MD [Primary Care Provider] - Coding Level of Care Code ED Software [employer] for [employer]
--- NOTE | 2022-10-24 15:54 | XRR_ITS ---
PROCEDURE INFORMATION: Exam: XR Chest Exam date and time: 10/24/2022 4:14 PM Age: 67 years old Clinical indication: Shortness of breath; Prior surgery; Surgery date: 6+ months; Surgery type: Hernia TECHNIQUE: Imaging protocol: Radiologic exam of the chest. Views: 1 view. COMPARISON: CT chest con [id number] 02/24/2019 11:14 AM FINDINGS: Lungs: Calcified granulomas in the right upper lobe. Atelectasis/consolidation in the left lung base and perihilar region. Pleural spaces: Large left pleural effusion. No pneumothorax. Heart/Mediastinum: Unremarkable. No cardiomegaly. Bones/joints: Unremarkable. XR/XR chest 1V portable [id number] IMPRESSION: 1. Large left pleural effusion. 2. Consolidation in the left lung base and perihilar region. An underlying neoplastic process cannot be excluded, and follow-up with a CT chest with contrast is recommended.
--- NOTE | 2022-10-24 16:00 | ECG_ITS ---
[facility] Test Date: 2022-10-24 Pat Name: Altaf Rascon Department: Room: Gender: Male Functional Consultant: : [id number] Requested By: Praveen Messer Order Number: [id number] Leonard MD: Jaquan Gtz M.D. Measurements Intervals [place] Rate: 76 P: 32 FL: 143 QRS: 42 QRSD: 96 T: 55 QT: 398 QTc: 450 Interpretive Statements SINUS RHYTHM Compared to ECG 06/09/2015 19:43:00 Myocardial infarct finding no longer present Electronically Signed On 10-24-2022 19:46:05 CDT by Jaquan Gtz M.D. [id number]
[2022-10-24 16:26] LABS: Basophils # 0.1 10^3/uL (0.0-0.1); Basophils % 0.9 %; Eosinophils # 0.4 10^3/uL (0.0-0.8); Eosinophils % 5.5 %; Hematocrit 39.6 % (42.0-52.0); Hemoglobin 12.8 g/dL (11.7-16.6); Lymphocytes # 1.4 10^3/uL (0.8-4.8); Lymphocytes % 21.7 %; Mean Corpuscular HGB Conc 32.3 g/dL (30.0-36.0); Mean Corpuscular Hemoglobin 31.8 pg (28.0-34.0); Mean Corpuscular Volume 98.5 fl (80-94); Mean Platelet Volume 11.3 fL (7.4-10.4); Monocytes # 0.7 10^3/uL (0.2-0.9); Monocytes % 10.7 %; Neutrophils # 3.86 10^3/uL (1.8-7.7); Neutrophils % 60.6 %; Nucleated Red Blood Cells % 0 %; Platelet Count 89 10^3/cmm (130-400); Red Blood Count 4.02 10^6/uL (4.1-5.3); Red Cell Distribution Width 13.5 % (12.1-15.1); White Blood Count 6.4 10^3/uL (4.0-10.0)
[2022-10-24 16:46] LABS: Troponin T (5th) Once 53 ng/L (0-15)
[2022-10-24 16:55] LABS: Alanine Aminotransferase 24 U/L (0-41); Albumin Level 3.2 g/dL (3.5-5.2); Alkaline Phosphatase 384 U/L (40-130); Blood Urea Nitrogen 11 mg/dL (8-23); Calcium 8.4 mg/dL (8.5-10.5); Carbon Dioxide 22 mmol/L (22-29); Chloride 102 mmol/L (98-107); Globulin 3.4 g/dL (1.3-4.6); Glomerular Filtration Rate 96.7 mL/min (90-130); Glucose 127 mg/dL (65-115); NT Pro B Type Natriuretic Pept 477 pg/mL (0-125); Osmolality Calculated 279 mOsm/kg (285-295); Sodium 134 mmol/L (136-145); Total Bilirubin 1.9 mg/dL (0.15-1.2); Total Protein 6.6 g/dL (6.6-8.7)
[2022-10-24 16:59] LABS: Anion Gap 14.6 (5-19); Aspartate Amino Transferase 48 U/L (0-40); Potassium 4.6 mmol/L (3.5-5.1)
[2022-10-24] MEDS: FUROsemide 10 mg/mL SDV 4mL 40 MG IVP (17:14)
[2022-10-24 18:16] VITALS: BP 161/95; PULSE 83; RESP 17; O2SAT 99
[2022-10-24 18:41] LABS: Add Urine Microscopic? NO; Charge for UA Resulting for Rev
[2022-10-24 18:49] LABS: Bilirubin Urine Neg (Negative); Blood Urine Neg (Negative); Glucose Urine UA 2+ (Normal); Ketones Urine Negative (Negative); Leukocyte Esterase Urine Negative (Negative); Nitrate Urine Negative (Negative); Protein Urine Neg (Negative); Specific Gravity, Urine 1.015 (1.005-1.030); Urine Appearance Clear (CLEAR); Urine Color Yellow (Yellow); Urobilinogen Urine Norm (Negative); pH Urine 6 (5-7)
--- NOTE | 2022-10-24 18:54 | CTR_ITS ---
PROCEDURE INFORMATION: Exam: CTA Chest With Contrast Exam date and time: 10/24/2022 7:50 PM Age: 67 years old Clinical indication: Shortness of breath; Prior surgery; Surgery date: 6+ months; Surgery type: Cabg; Patient HX: Worsening SOB with weight gain. Pleural effusion noted on cxr. ; Additional info: Pleural effusion, lung mass shortness of breath. TECHNIQUE: Imaging protocol: Computed tomographic angiography of the chest with contrast. Exam focused on the arteries. 3D rendering (Not supervised by radiologist): MIP and/or 3D reconstructed images were created by the technologist. Radiation optimization: All CT scans at this facility use at least one of these dose optimization techniques: automated exposure control; mA and/or kV adjustment per patient size (includes targeted exams where dose is matched to clinical indication); or iterative reconstruction. Contrast material: OMNI 350; Contrast volume: 100 ml; Contrast route: INTRAVENOUS (IV); REPORTING DATA: Count of CT and Cardiac NM exams in prior 12 months: This patient has received [address] and 0 known cardiac nuclear medicine studies in the 12 months prior to the current study. COMPARISON: CT chest [facility] [id number] 02/24/2019 11:14 AM RADIATION DOSE METRICS: Total DLP (mGy-cm): 340.73 FINDINGS: Pulmonary arteries: Normal. No pulmonary emboli. Aorta: Unremarkable. No aortic aneurysm. No aortic dissection. Lungs: Partial collapse of the left upper and lower lobes, consistent with atelectasis. Ground-glass opacity in the posterior left upper lobe. Right upper lobe calcified granuloma. The right lung is otherwise clear. Pleural spaces: Large left pleural effusion, Hounsfield units less than 20. No pleural thickening. No pneumothorax. Heart: The heart size is normal. Coronary arteries: Coronary artery calcifications and possible stents. Lymph nodes: Calcified mediastinal lymph node. Liver: Cirrhotic liver. Spleen: Splenomegaly. Kidneys and ureters: 3 mm right renal calculus. Intraperitoneal space: Moderate ascites. Bones/joints: Median sternotomy. Mild degenerative changes of the spine. No acute fracture. Soft tissues: Diffuse body wall edema. CT/CT angio chest PE protcl [id number] IMPRESSION: 1. No evidence for pulmonary embolus. 2. No evidence for lung malignancy or other neoplastic process. 3. Large left pleural effusion with left lung atelectasis. 4. Ground-glass opacity in the left upper lobe could represent pulmonary edema or pneumonia. 5. Cirrhotic liver. 6. Splenomegaly. 7. Moderate ascites. 8. Body wall edema.
[2022-10-24] MEDS: iohexol 350 mg/mL 500 mL Btl (per mL) IV (19:00)
[2022-10-24 20:38] VITALS: BP 138/91; PULSE 88; RESP 16; O2SAT 98
[2022-10-24 20:59] VITALS: BP 138/91; PULSE 88; RESP 16; O2SAT 98
== END 2022-10-24 20:50 | disposition left against medical advice (07) ==
PROVIDERS: Emergency Provider Family Medicine; PCP Family Medicine
DX: J90 Pleural effusion, not elsewhere classified (principal); R18.8 Other ascites; I10 Essential (primary) hypertension
CPT/HCPCS: 36415; 71045; 71275; 80053; 81003; 83880; 84484; 85025; 93005; 96374; 99285; J1940; Q9967

== ENCOUNTER 2022-10-25 12:16 | Inpatient (IN) | payer MEDICARE, MEDICAID, SELFPAY ==
[2022-10-25] VITALS (39 sets, daily range): BP systolic 92–175; BP diastolic 56–92; PULSE 77–93; RESP 16–29; TEMP 36.8; O2SAT 91–100; BMI 25.4
--- NOTE | 2022-10-25 12:53 | XRR_ITS ---
PROCEDURE INFORMATION: Exam: XR Chest Exam date and time: 10/25/2022 1:07 PM Age: 67 years old Clinical indication: Shortness of breath; Prior surgery; Surgery date: 6+ months; Surgery type: History of heart surgery. ; Additional info: SOB TECHNIQUE: Imaging protocol: Radiologic exam of the chest. Views: 1 view. COMPARISON: CR XR chest 1V portable [id number] 10/24/2022 4:14 PM FINDINGS: Lungs: Opacification suggesting [id number] left pleural effusion, involving mid to lower left lung. Subjacent atelectasis mid left lung. Interval decreased opacity around the left perihilar mid lung region from previous exam. Pleural effusion appears similar. Upper-most left lung appears clear. Right lung appears clear except for tiny calcified granuloma upper right lung as seen with prior exam. No pneumothorax. Pleural spaces: See Lungs finding. Heart/Mediastinum: See Bones/joints finding. Bones/joints: Postsurgical changes of sternotomy/CABG. Left cardiac border is not seen without findings to indicate cardiomegaly. Visualized osseous structures show no acute abnormality. XR/XR chest 1V portable [id number] IMPRESSION: Continued findings of left-sided pleural effusion with component of subjacent atelectasis. Interval decreased left perihilar opacity otherwise from previous exam. Continued follow-up.
--- NOTE | 2022-10-25 14:03 | W.ED.SOB ---
HPI - SOB/Dyspnea General: Chief Complaint: Shortness of Breath/Dyspnea Stated Complaint: SOB Time Seen by Provider: 10/25/22 14:03 History of Present Illness: HPI Narrative: Mr. Rascon is a 67-year-old gentleman with history of diabetes, hypertension, hyperlipidemia, CAD with history of CABG, likely component of underlying liver disease presenting to the emergency department for reevaluation. He seen last night and at that time was endorsing shortness of breath some abdominal fullness as well as lower extremity edema. He received Lasix and actually feels somewhat improved. It sounds like at that time the plan was to admit for possible thoracentesis however patient had to take care of his animals and so left and returned today. He notes mild improvement in symptoms. Currently mild in intensity. Some exacerbation with exertion. No other specific changes in health, exacerbating, or alleviating factors identified. Onset (ago): week(s) Timing: improved Severity: mild Exacerbating factors: exertion Relieving factors: nothing Known history of: other Associated symptoms: Deny cough or nausea Review of Systems General: Reports: 10 or more systems reviewed and unremarkable except in HPI and below GI: Denies: nausea PFSH ED PFSH: Medical History (Updated 11/01/22 @ 00:01 by DAHLIA Humphries) CAD (coronary artery disease) Carpal tunnel syndrome Chronic low back pain Chronic neck and back pain Cigarette smoker motivated to quit Controlled type 2 diabetes mellitus with diabetic neuropathy DDD (degenerative disc disease), lumbar Encounter for long-term opiate analgesic use Generalized osteoarthritis Genital warts on topical treatment with imiquimod H/O: HTN (hypertension) History of asthma Hx of acute arthritis Hx of diabetes mellitus Neck pain Surgical History Hx of angioplasty Hx of coronary artery bypass surgery Family History Other CAD (coronary artery disease) Diabetes Hypertension Social History Smoking and tobacco status: current every day smoker cigarettes Packs smoked per day: 0.5 Second hand smoke exposure: No Alcohol intake: former Substance/Drug Use: never Physical Exam Const: COMMON NORMALS: alert GENERAL APPEARANCE: cooperative and well developed HENMT: COMMON NORMALS: normocephalic and atraumatic HEAD & SCALP: normocephalic and atraumatic Eye: COMMON NORMALS: conjunctivae normal CONJUNCTIVA: Yes conjunctivae normal SCLERA: sclerae normal Neck/C-Spine: COMMON NORMALS: supple GENERAL: Yes trachea midline Resp: COMMON NORMALS: normal respiratory effort EFFORT & INSPECTION: Yes able to speak in complete sentences AUSCULTATION: breath sounds absent (Left lower) Cardio: COMMON NORMALS: regular rate and regular rhythm RATE: regular rate RHYTHM: regular rhythm GI: COMMON NORMALS: Soft to palpation PALPATION: Yes Soft to palpation and No Tenderness to palpation present (GI) Extremity: GENERAL: Yes normal exam except as noted and Yes edema Neuro: COMMON NORMALS: moves all extremities SENSORIUM/ORIENTATION: Yes alert and No Orientation impaired Psych: COMMON NORMALS: mental status grossly normal and Normal thought process present THOUGHT PROCESS: Normal thought process present Course Vital Signs: Vital signs: Vital Signs Temperature 98.1 F 10/27/22 12:13 Pulse Rate 78 10/27/22 12:13 Respiratory Rate 19 H 10/27/22 12:13 Blood Pressure 152/70 10/27/22 12:13 Pulse Oximetry 96 10/27/22 12:13 Oxygen Delivery Me thod Room Air 10/27/22 08:00 MDM - SOB/Dyspnea Medical Decision Making 67-year-old gentleman presenting for reevaluation. Exam as above. Patient is nontoxic. Laboratory studies reviewed. Repeat chest x-ray demonstrates some findings. Patient requires further inpatient management of symptomatic effusion with evidence of volume overload and need for further clinical determination of etiologies and management. The results of ED evaluation were discussed with the patient including plan for admission due to requirement for level of care not available if discharged to prevent significant worsening/deterioration. Patient agreeable with plan. Discussed with hospitalist service who was agreeable to admit patient. Medical Records I reviewed the patient's medical records. Lab Data I reviewed the patient's lab results. 10/27/22 03:09 10/27/22 03:09 Labs/Radiology: Radiology Impressions Abdomen/Pelvis CT 10/25/22 18:01 IMPRESSION: 1. Negative for focal acute inflammatory process in the abdomen or pelvis. 2. Large left pleural effusion. 3. Sternotomy wires. 4. Emphysematous changes suspected. 5. Lingular atelectasis versus infiltrate. 6. Large amount of ascites. 7. Cirrhotic liver. 8. Spleen enlarged to 14 cm. 9. Anasarca. 10. Constipation. 11. Minimal diverticulosis without diverticulitis. 12. Right kidney punctate nonobstructing calyceal stone. Thoracentesis Ultrasound 10/26/22 17:23 IMPRESSION: 1. Uncomplicated ultrasound-guided thoracentesis with removal of 1100 cc 2. Post thoracentesis chest radiograph demonstrates a septation LEFT lower lobe. This likely represents trapped or fibrotic lung with incomplete reexpansion. There appears to be lung markings peripheral to this area. Recommend interval chest radiograph follow-up to assess change. Notified Roman Bell MD at 10/26/2022 4:18 PM. Chest X-Ray 10/27/22 06:00 IMPRESSION: There is history of a left hydropneumothorax appearing relatively similar compared to the previous studies. This could represent incomplete expansion and scarring related change.No significant change of parenchymal aeration is appreciated. Laboratory Results WBC 6.7 10^3/uL (4.0-10.0) 10/26/22 01:17 RBC 3.88 10^6/uL (4.1-5.3) L 10/26/22 01:17 Hgb 12.3 g/dL (11.7-16.6) 10/26/22 01:17 Hct 37.6 % (42.0-52.0) L 10/26/22 01:17 MCV 96.9 fl (80-94) H 10/26/22 01:17 MCH 31.7 pg (28.0-34.0) 10/26/22 01:17 MCHC 32.7 g/dL (30.0-36.0) 10/26/22 01:17 RDW 13.5 % (12.1-15.1) 10/26/22 01:17 Plt Count 92 10^3/cmm (130-400) L 10/26/22 01:17 MPV 11.1 fL (7.4-10.4) H 10/26/22 01:17 Neut % (Auto) 60.9 % 10/26/22 01:17 Lymph % (Auto) 20.3 % 10/26/22 01:17 [place]son % (Auto) 10.5 % 10/26/22 01:17 Eos % (Auto) 6.9 % 10/26/22 01:17 Baso % (Auto) 1.1 % 10/26/22 01:17 Neut # (Auto) 4.06 10^3/uL (1.8-7.7) 10/26/22 01:17 Lymph # (Auto) 1.4 10^3/uL (0.8-4.8) 10/26/22 01:17 [place] # (Auto) 0.7 10^3/uL (0.2-0.9) 10/26/22 01:17 Eos # (Auto) 0.5 10^3/uL (0.0-0.8) 10/26/22 01:17 Baso # (Auto) 0.1 10^3/uL (0.0-0.1) 10/26/22 01:17 Nucleated RBC % (auto) 0 % 10/26/22 01:17 Nucleated RBCs # 0.0 /100WBC 10/26/22 01:17 Differential Comment Yes 10/26/22 14:55 PT 17.00 SECONDS (12.1-14.9) H 10/25/22 14:39 INR 1.34 (0.8-1.2) H 10/25/22 14:39 Sodium 138 mmol/L (136-145) 10/26/22 01:17 Potassium 4.4 mmol/L (3.5-5.1) 10/26/22 01:17 Chloride 104 mmol/L (98-107) 10/26/22 01:17 Carbon Dioxide 27 mmol/L (22-29) 10/26/22 01:17 Anion Gap 11.4 (5-19) 10/26/22 01:17 BUN 16 mg/dL (8-23) 10/26/22 01:17 Creatinine 0.7 mg/dL (0.7-1.2) 10/26/22 01:17 GFR Calculation 112.8 mL/min (90-130) 10/26/22 01:17 Glucose 80 mg/dL (65-115) 10/26/22 01:17 POC Glucose 225 mg/dL (70-110) H 10/26/22 17:02 Estimat Average Glucose 143 10/26/22 01:17 Hemoglobin A1c 6.6 % (4.0-6.0) H 10/26/22 01:17 Calculated Osmolality 286 mOsm/kg (285-295) 10/26/22 01:17 Calcium 8.3 mg/dL (8.5-10.5) L 10/26/22 01:17 Phosphorus 3.4 mg/dL (2.5-4.5) 10/26/22 01:17 Magnesium 1.6 mg/dL (1.7-2.3) L 10/26/22 01:17 Iron 78 ug/dL (59-158) 10/25/22 15:19 TIBC 179 mcg/dl 10/25/22 15:19 % Saturation 43.5 % (20-50) 10/25/22 15:19 Unsat Iron Binding 101 ug/dL (112-347) L 10/25/22 15:19 Total Bilirubin 1.8 mg/dL (0.15-1.2) H 10/26/22 01:17 AST 50 U/L (0-40) H 10/26/22 01:17 ALT 21 U/L (0-41) 10/26/22 01:17 Alkaline Phosphatase 383 U/L (40-130) H 10/26/22 01:17 Troponin T Baseline 50 ng/L (0-15) H 10/25/22 17:51 Troponin T 120 Minute 55.92 ng/L (0-15) H 10/25/22 19:55 Delta Troponin T 5.92 ABS# (0-10) 10/25/22 19:55 Troponin T Hi Sens 6Hr 61.81 ng/L (0-15) H 10/25/22 01:17 Troponin T Hi Sens 6Hr Delta 11.81 ng/L (0-12) 10/25/22 01:17 NT-Pro-B Natriuret Pep 392 pg/mL (0-125) H 10/25/22 15:19 Total Protein 5.9 g/dL (6.6-8.7) L 10/26/22 01:17 Albumin 2.7 g/dL (3.5-5.2) L 10/26/22 01:17 Globulin 3.2 g/dL (1.3-4.6) 10/26/22 01:17 Triglycerides 54 mg/dL (0-150) 10/26/22 01:17 Cholesterol 160 mg/dL (0-200) 10/26/22 01:17 LDL Cholesterol, Calc 88 mg/dL (50-129) 10/26/22 01:17 HDL Cholesterol 61 mg/dL (60-100) 10/26/22 01:17 LDL/HDL Ratio 1.44 RATIO (0.00-3.22) 10/26/22 01:17 Cholesterol/HDL Ratio 2.62 mg/dL (1.0-5.00) 10/26/22 01:17 Vitamin B12 1839 pg/mL (232-1245) H 10/25/22 15:19 Folate 12.5 ng/mL (4.5-32.2) 10/26/22 01:17 Procalcitonin 0.16 ng/mL (0-0.5) 10/25/22 15: TSH 2.81 uIU/mL (0.27-4.20) 10/25/22 15:19 Urine Color Yellow (Yellow) 10/25/22 20:55 Urine Appearance Clear (CLEAR) 10/25/22 20:55 Urine pH 5 (5-7) 10/25/22 20:55 Ur Specific [place] 1.005 (1.005-1.030) 10/25/22 20:55 Urine Protein Neg (Negative) 10/25/22 20:55 Urine Glucose (UA) 4+ (Normal) H 10/25/22 20:55 Urine Ketones Negative (Negative) 10/25/22 20:55 Urine Blood Neg (Negative) 10/25/22 20:55 Urine Nitrate Negative (Negative) 10/25/22 20:55 Urine Bilirubin Neg (Negative) 10/25/22 20:55 Urine Urobilinogen Norm mg/dL (Negative) 10/25/22 20:55 Ur Leukocyte Esterase Negative (Negative) 10/25/22 20:55 Fluid Color Svetlana 10/26/22 14:55 Fluid Appearance Cloudy 10/26/22 14:55 Fluid Specific Grav 1.012 10/26/22 14:55 Fluid pH 8.0 10/26/22 14:55 Fluid WBC 266 /uL 10/26/22 14:55 Fluid RBC 3.000 10^3/uL 10/26/22 14:55 Fld Polynuclear WBCs # 0.016 10/26/22 14:55 Fld Polynuclear WBCs % 6.100 % 10/26/22 14:55 Fl Mononucl WBCs #(Auto) 0.250 10/26/22 14:55 Fl Mononuclear % Auto 93.900 % 10/26/22 14:55 Fld Crystal Laterality Left chest 10/26/22 14:55 Fluid Glucose 140.0 mg/dL 10/26/22 14:55 Fluid Albumin 0.9 g/dL 10/26/22 14:55 Fluid LDH 47 U/L 10/26/22 14:55 Fluid Amylase 13 U/L 10/26/22 14:55 Fluid Alk Phosphatase 39 IU/L 10/26/22 14:55 Fluid Cholesterol 20 mg/dL (0-200) 10/26/22 14:55 Fluid Triglycerides 13 mg/dL (0-150) 10/26/22 14:55 Fluid Uric Acid 4 mg/dL 10/26/22 14:55 Pleural Total Protein 1.0 g/dL 10/26/22 14:55 Urine Opiates Screen Positive ng/mL (Negative) H 10/25/22 20:55 Ur Barbiturates Screen Negative ng/mL (Negative) 10/25/22 20:55 Ur Phencyclidine Scrn Negative ng/mL (Negative) 10/25/22 20:55 Ur Amphetamines Screen Negative ng/mL (Negative) 10/25/22 20:55 U Benzodiazepines Scrn Negative ng/mL (Negative) 10/25/22 20:55 Urine Cocaine Screen Negative ng/mL (Negative) 10/25/22 20:55 U Marijuana (THC) Screen Negative ng/mL (Negative) 10/25/22 20:55 Ethyl Alcohol < 10 mg/dL (0-10) 10/25/22 15:19 HIV 1&2 Ab & HIV 1 Ag Non-reactive (Non-Reactiv) 10/25/22 19:55 HIV 1&2 Antibody Non-reactive (Non-Reactiv) 10/25/22 19:55 Discharge Plan Discharge Patient Disposition: Admitted As Inpatient Admit Provider: Roman Bell Clinical Impression: Congestive heart failure, Ascites, Volume overload, Pleural effusion Condition: Stable Discharge Diet: Cardiac Discharge Activity: Resume usual activity and Increase activity as tolerated Coding Level of Care Code ED Supply Officer for Parag Pastor
[2022-10-25 14:59] LABS: Basophils # 0.1 10^3/uL (0.0-0.1); Basophils % 0.9 %; Eosinophils # 0.4 10^3/uL (0.0-0.8); Eosinophils % 6.1 %; Hematocrit 41.6 % (42.0-52.0); Hemoglobin 13.5 g/dL (11.7-16.6); INR 1.34 (0.8-1.2); Lymphocytes # 1.2 10^3/uL (0.8-4.8); Lymphocytes % 18.4 %; Mean Corpuscular HGB Conc 32.5 g/dL (30.0-36.0); Mean Corpuscular Hemoglobin 31.8 pg (28.0-34.0); Mean Corpuscular Volume 97.9 fl (80-94); Mean Platelet Volume 12.1 fL (7.4-10.4); Monocytes # 0.7 10^3/uL (0.2-0.9); Neutrophils % 64.2 %; Nucleated Red Blood Cells % 0 %; Platelet Count 89 10^3/cmm (130-400); Red Blood Count 4.25 10^6/uL (4.1-5.3); Red Cell Distribution Width 13.6 % (12.1-15.1); White Blood Count 6.7 10^3/uL (4.0-10.0)
[2022-10-25 15:56] LABS: Anion Gap 12.3 (5-19); Blood Urea Nitrogen 12 mg/dL (8-23); Calcium 8.6 mg/dL (8.5-10.5); Carbon Dioxide 27 mmol/L (22-29); Chloride 102 mmol/L (98-107); Glomerular Filtration Rate 96.7 mL/min (90-130); Glucose 171 mg/dL (65-115); Osmolality Calculated 288 mOsm/kg (285-295); Potassium 4.3 mmol/L (3.5-5.1); Sodium 137 mmol/L (136-145)
[2022-10-25 16:06] LABS: NT Pro B Type Natriuretic Pept 392 pg/mL (0-125)
--- NOTE | 2022-10-25 17:42 | PM.HP ---
Providers/Chief Complaint Admitting Physician: Roman Bell MD Primary Care Provider: Nathan Torres MD Chief Complaint: SOB History of Present Illness Altaf Rascon is a 67 year old male with past medical history of CAD, multiple stent placement, post CABG, diastolic heart failure with last echocardiogram in November 2021, history of liver cirrhosis secondary to alcohol abuse in the past, type 2 diabetes mellitus who presented to the ER today with complaining of increased swelling in her lower limb, abdomen and slight difficulty in breathing which has been ongoing and getting worse for last 3 weeks. Symptoms are not preceded by chest pain, nausea or vomiting. In the ER yesterday when he had, he was given IV Lasix after which she started feeling better but he was also told that he has fluid around his lungs so he came to the ER today. Review of Systems General: Reports: 10 or more systems reviewed and unremarkable except in HPI and below Const: Denies: fever(s), chills, body aches, change in appetite, change in weight, malaise, night sweats, diaphoresis, change in sleep pattern, daytime sleepiness or snoring Eyes: Denies: change in vision, blurry vision, photophobia, eye discomfort or eye discharge ENMT: Denies: throat pain, enlarged tonsils, hoarseness, mouth pain, oral sores, dry mouth, tinnitus, nasal congestion or post nasal drip Card: Denies: chest pain, palpitations, irregular heart rhythm, edema, swelling of feet/ankles, lightheadedness, syncope, pre-syncope, dyspnea on exertion, orthopnea, leg pain with exertion or acrocyanosis Resp: Denies: dyspnea, productive cough, non-productive cough, wheezing, stridor, pain on inspiration, change in phlegm color, hemoptysis or chest congestion GI: Denies: abdominal pain, nausea, vomiting, hematemesis, coffee ground emesis, dysphagia, heartburn, diarrhea, constipation, bloating, GI cramping, change in bowel habits, pain on defecation, hematochezia or melena : Denies: flank pain, difficulty urinating, dysuria, urinary frequency, urinary urgency, urinary hesitancy, urinary dribbling, difficulty starting urination, change in urine stream, nocturia or hematuria Musc: Denies: neck pain, back pain, extremity pain, joint pain, joint swelling, joint redness, joint stiffness or limited range of motion Neuro: Denies: headache(s), numbness in extremities, weakness in extremities, sensory changes, lack of coordination, difficulty walking, frequent falls, dizziness, vertigo, confusion, Slurred speech present, difficulty communicating thoughts or seizure-like activity Psych: Denies: anxiety, depression, mood swings, panic attacks, hopelessness or irritability Endo: Denies: polyuria, polydipsia, tired all the time, cold intolerance, excessive sweating, flushing or heat intolerance Wilfredo/Lymph: Denies: easy bruising or easy bleeding All/Imm: Denies: tongue swelling, facial swelling or acute wheezing Medications/Allergies Home Medications Medication Instructions Recorded Confirmed Last Taken Type aspirin 81 mg tablet,delayed 81 mg PO DAILY 06/23/19 10/25/22 10/25/22 History release glipizide 5 mg tablet, extended 5 mg PO DAILY 06/23/19 10/25/22 10/25/22 History release 24 hr sitagliptin phosphate 100 mg 100 mg PO DAILY 06/23/19 10/25/22 10/25/22 History tablet (Januvia) gabapentin 400 mg capsule 400 mg PO TID 30 days #90 caps 06/08/21 10/25/22 10/25/22 Rx alprazolam 0.5 mg tablet 0.25 - 0.5 mg PO Q8H PRN Anxiety 12/06/21 10/25/22 12/06/21 08:00 History cetirizine 10 mg tablet 10 mg PO DAILY PRN Allergy Symptoms 12/06/21 10/25/22 12/06/21 08:00 History dexlansoprazole 60 mg 60 mg PO BEDTIME 12/06/21 10/25/22 10/24/22 History capsule,biphase delayed release (Dexilant) fluticasone 250 mcg-salmeterol 50 1 inh inhalation BID 12/06/21 10/25/22 10/25/22 History mcg/dose blistr powdr for inhalation (Wixela Inhub) hydrocodone 10 mg-acetaminophen 1 tab PO Q4H PRN Pain 12/06/21 10/25/22 10/25/22 History 325 mg tablet nitroglycerin 0.4 mg sublingual 0.4 mg sublingual PRN PRN Chest 12/06/21 10/25/22 Unknown History tablet Pain albuterol sulfate 90 mcg/actuation 2 puff inhalation Q6H PRN 10/25/22 10/25/22 10/25/22 History aerosol inhaler Shortness Of Breath Or Wheezing dapagliflozin 5 mg tablet (Farxiga) 5 mg PO DAILY 10/25/22 10/25/22 10/25/22 History doxepin 25 mg capsule 25 mg PO BEDTIME 10/25/22 10/25/22 10/24/22 History Allergies Allergy/AdvReac Type Severity Reaction Status Date / Time doxycycline Allergy ADR-Vomitin Verified 03/21/22 11:05 g metformin Allergy Unknown Verified 03/21/22 11:05 pantoprazole Allergy Unknown Verified 03/21/22 11:05 PFSH Acute PFSH: Medical History (Updated 10/25/22 @ 18:18 by Roman Bell MD) CAD (coronary artery disease) Carpal tunnel syndrome Chronic low back pain Chronic neck and back pain Cigarette smoker motivated to quit Controlled type 2 diabetes mellitus with diabetic neuropathy DDD (degenerative disc disease), lumbar Encounter for long-term opiate analgesic use Generalized osteoarthritis Genital warts on topical treatment with imiquimod H/O: HTN (hypertension) History of asthma Hx of acute arthritis Hx of diabetes mellitus Neck pain Surgical History Hx of angioplasty Hx of coronary artery bypass surgery Family History Other CAD (coronary artery disease) Diabetes Hypertension Social History Smoking and tobacco status: current every day smoker cigarettes Packs smoked per day: 0.5 Second hand smoke exposure: No Alcohol intake: former Substance/Drug Use: never Vitals/I&O/Wt Last Vital Signs Temp 98.2 F 10/25/22 12:20 Pulse 79 10/25/22 17:07 Resp 18 10/25/22 17:07 BP 175/92 10/25/22 17:07 Pulse Ox 96 10/25/22 17:07 O2 Del Method Room Air 10/25/22 17:07 Weight last 48 hrs Weight 75.75 kg Physical Exam Narrative: General: No acute distress, AO x3, pleasant, cachectic HEENT: PERRLA, pupils bilaterally equal and reactive Chest: Normal vesicular breath sounds, no added sounds, decreased air entry left middle and lower zone CVS: S1-S2 regular, heart sounds muffled, no tachycardia, no gallops, no rubs Abdomen: Soft, distended nontender, no organomegaly, bowel sounds present Neuro: No focal deficits, no facial deformity, AO x3, power 5/5 in all limbs Data 10/25/22 14:39 10/25/22 15:19 A&P Assessment and plan (1) Pleural effusion on left: (2) Volume overload: (3) Cirrhosis of liver: (4) Congestive heart failure: (5) CAD (coronary artery disease): (6) Controlled type 2 diabetes mellitus with diabetic neuropathy: (7) Abdominal distention: Plan Abdominal distention, fluid overload, left-sided pleural effusion: Most likely in setting of congestive heart failure. Most likely chronic diastolic heart failure. Cannot rule out in setting of liver cirrhosis. Plan for echocardiogram, left-sided thoracentesis, CT abdomen pelvis. IV Lasix 40 mg twice daily. We will plan to add spironolactone gradually depending on renal functions. Check TSH, iron panel, urinalysis, vitamin B12, troponin cycled, urine drug screen, alcohol level. Strict input output charting, daily weights. CAD: History of CABG: No active chest pain. Check A1c, lipid panel. Continue home dose of aspirin. Patient not on statin. Will start as per lipid panel results. Echocardiogram as above. Type 2 diabetes mellitus: Insulin sliding scale at moderate dose protocol. A1c. Hypertension: Not on antihypertensive at home. Goal blood pressure less than 140/90 mmHg. For now start on lisinopril 10 mg daily. Will uptitrate as per goal blood pressures. Cardiac carb consistent diet. Heparin 5000 every 12 hourly for DVT prophylaxis. Protonix for PUD prophylaxis. Attestations Medical Necessity Statement*: Admission under observation for less than 2 midnights for further evaluation and management of fluid overload with abdominal distention and left-sided pleural effusion in a patient with history of liver cirrhosis and post CABG Diagnoses Pleural effusion on left J90 Volume overload E87.70 Cirrhosis of liver K74.60 Congestive heart failure I50.9 CAD (coronary artery disease) I25.10 Controlled type 2 diabetes mellitus with diabetic neuropathy E11.40 Abdominal distention R14.0
[2022-10-25 17:46] LABS: Glucose Point of Care 133 mg/dL (70-110)
--- NOTE | 2022-10-25 18:01 | CTR_ITS ---
PROCEDURE INFORMATION: Exam: CT Abdomen And Pelvis Without Contrast Exam date and time: 10/25/2022 11:03 PM Age: 67 years old Clinical indication: Bloating; Prior surgery; Surgery date: 6+ months; Surgery type: Cabg; Patient HX: Abd distention. Ascites noted on chest cta. History of cirrhosis. ; Additional info: Abd distension, liver cirrhosis TECHNIQUE: Imaging protocol: Computed tomography of the abdomen and pelvis without contrast. Radiation optimization: All CT scans at this facility use at least one of these dose optimization techniques: automated exposure control; mA and/or kV adjustment per patient size (includes targeted exams where dose is matched to clinical indication); or iterative reconstruction. REPORTING DATA: Count of CT and Cardiac NM exams in prior 12 months: This patient has received 2 known CTs and 0 known cardiac nuclear medicine studies in the 12 months prior to the current study. COMPARISON: MR MRCP [id number] 03/14/2022 11:17 AM RADIATION DOSE METRICS: Total DLP (mGy-cm): 521.06 FINDINGS: Lungs: Emphysematous changes suspected. Lingular atelectasis versus infiltrate. Pleural spaces: Large left pleural effusion. Liver: Cirrhotic liver. Gallbladder and bile ducts: Normal. No calcified stones. No ductal dilation. Pancreas: Normal. No ductal dilation. Spleen: Spleen enlarged to 14 cm. Adrenal glands: Normal. No mass. Kidneys and ureters: Right kidney punctate nonobstructing calyceal stone. Stomach and bowel: Constipation. Minimal diverticulosis without diverticulitis. Appendix: No evidence of appendicitis. Intraperitoneal space: Large amount of ascites. Vasculature: Unremarkable. No abdominal aortic aneurysm. Lymph nodes: Unremarkable. No enlarged lymph nodes. Urinary bladder: Unremarkable as visualized. Reproductive: Unremarkable as visualized. Bones/joints: Sternotomy wires. Soft tissues: Anasarca. CT/CT abdomen pelvis wo con [id number] IMPRESSION: 1. Negative for focal acute inflammatory process in the abdomen or pelvis. 2. Large left pleural effusion. 3. Sternotomy wires. 4. Emphysematous changes suspected. 5. Lingular atelectasis versus infiltrate. 6. Large amount of ascites. 7. Cirrhotic liver. 8. Spleen enlarged to 14 cm. 9. Anasarca. 10. Constipation. 11. Minimal diverticulosis without diverticulitis. 12. Right kidney punctate nonobstructing calyceal stone.
[2022-10-25 18:23] LABS: Iron 78 ug/dL (59-158); Percent Saturation 43.5 % (20-50); Total Iron Binding Capacity 179 mcg/dl; Unsaturated Iron Binding 101 ug/dL (112-347)
--- NOTE | 2022-10-25 18:23 | ECG_ITS ---
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 Measurements Intervals [place] Rate: 81 P: 48 IN: 147 QRS: 33 QRSD: 101 T: 41 QT: 393 QTc: 459 Interpretive Statements SINUS RHYTHM WITH OCCASIONAL SUPRAVENTRICULAR PREMATURE COMPLEXES Compared to ECG 10/24/2022 16:42:43 No significant changes Electronically Signed On 10-26-2022 4:56:52 CDT by Kamilah Hartley M.D. [id number]
[2022-10-25 18:27] LABS: Alcohol Level < 10 mg/dL (0-10)
[2022-10-25 18:31] LABS: Troponin(5th) Baseline 50 ng/L (0-15)
[2022-10-25] MEDS: lisinopril 10 mg Tablet PO (18:34)
[2022-10-25] MEDS: heparin 5,000 unit/mL INJ 1 mL 5000 UNIT SUBCUT (18:34)
[2022-10-25] MEDS: FUROsemide 10 mg/mL SDV 4mL 40 MG IVP (18:34)
[2022-10-25 18:38] LABS: Procalcitonin 0.16 ng/mL (0-0.5); Vitamin B12 1839 pg/mL (232-1245)
--- NOTE | 2022-10-25 19:23 | ECG_ITS ---
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 Measurements Intervals [place] Rate: 87 P: 33 IN: 133 QRS: 30 QRSD: 102 T: 29 QT: 372 QTc: 448 Interpretive Statements SINUS RHYTHM WITH OCCASIONAL SUPRAVENTRICULAR PREMATURE COMPLEXES Compared to ECG 10/25/2022 23:27:17 No significant changes Electronically Signed On 10-26-2022 8:45:01 CDT by Jaquan Gtz M.D. [email or web address] [email or web address] [id number]
[2022-10-25 20:04] LABS: Thyroid Stimulating Hormone 2.81 uIU/mL (0.27-4.20)
[2022-10-25 20:20] LABS: Troponin 5 2HR 55.92 ng/L (0-15)
[2022-10-25 20:22] LABS: Troponin 5 2HR Delta 5.92 ABS# (0-10)
[2022-10-25 20:42] LABS: HIV 1 & 2 Antibody Non-Reactive (Non-Reactiv); HIV 1 & 2 Antigen Non-Reactive (Non-Reactiv)
[2022-10-25] MEDS: gabapentin 400 mg Capsule PO (20:53)
[2022-10-25 21:04] LABS: Add Urine Microscopic? NO; Charge for UA Resulting for Rev
[2022-10-25 21:14] LABS: Bilirubin Urine Neg (Negative); Blood Urine Neg (Negative); Ketones Urine Negative (Negative); Nitrate Urine Negative (Negative); Protein Urine Neg (Negative); Specific Gravity, Urine 1.005 (1.005-1.030); Urine Appearance Clear (CLEAR); Urine Color Yellow (Yellow); Urobilinogen Urine Norm (Negative); pH Urine 5 (5-7)
[2022-10-25 21:15] LABS: Glucose Urine UA 4+ (Normal); Leukocyte Esterase Urine Negative (Negative)
[2022-10-25] MEDS: HYDROcodone-acetaminophen 10-325 mg Tablet 1 TAB PO (21:17)
[2022-10-25 21:25] LABS: Amphetamines Screen Urine Negative (Negative); Barbiturates Screen Urine Negative (Negative); Benzodiazepines Screen Urine Negative (Negative); Cocaine Screen Urine Negative (Negative); Opiate Screen Urine Positive (Negative); PCP Screen Urine Negative (Negative); THC Screen Urine Negative (Negative)
[2022-10-25 21:51] LABS: Glucose Point of Care 238 mg/dL (70-110)
[2022-10-25] MEDS: insulin lispro 100 unit/1 mL SUBCUT (22:01)
--- NOTE | 2022-10-25 23:23 | ECG_ITS ---
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 Measurements Intervals [place] Rate: 87 P: 27 IN: 135 QRS: 29 QRSD: 92 T: 28 QT: 372 QTc: 448 Interpretive Statements SINUS RHYTHM Compared to ECG 10/25/2022 18:23:45 No significant changes Electronically Signed On 10-26-2022 8:45:03 CDT by Jaquan Gtz M.D. [id number]
[2022-10-26] VITALS (58 sets, daily range): BP systolic 83–154; BP diastolic 47–74; PULSE 72–87; RESP 10–23; TEMP 36.5–37.2; O2SAT 92–97
[2022-10-26] MEDS: HYDROcodone-acetaminophen 10-325 mg Tablet 1 TAB PO ×4 (01:23→23:35)
[2022-10-26 01:29] LABS: Basophils # 0.1 10^3/uL (0.0-0.1); Basophils % 1.1 %; Eosinophils # 0.5 10^3/uL (0.0-0.8); Eosinophils % 6.9 %; Hematocrit 37.6 % (42.0-52.0); Hemoglobin 12.3 g/dL (11.7-16.6); Lymphocytes # 1.4 10^3/uL (0.8-4.8); Lymphocytes % 20.3 %; Mean Corpuscular HGB Conc 32.7 g/dL (30.0-36.0); Mean Corpuscular Hemoglobin 31.7 pg (28.0-34.0); Mean Corpuscular Volume 96.9 fl (80-94); Mean Platelet Volume 11.1 fL (7.4-10.4); Monocytes # 0.7 10^3/uL (0.2-0.9); Monocytes % 10.5 %; Neutrophils # 4.06 10^3/uL (1.8-7.7); Neutrophils % 60.9 %; Nucleated Red Blood Cells % 0 %; Platelet Count 92 10^3/cmm (130-400); Red Blood Count 3.88 10^6/uL (4.1-5.3); Red Cell Distribution Width 13.5 % (12.1-15.1); White Blood Count 6.7 10^3/uL (4.0-10.0)
[2022-10-26 01:45] LABS: Troponin 5 6HR 61.81 ng/L (0-15)
[2022-10-26 01:48] LABS: Alanine Aminotransferase 21 U/L (0-41); Albumin Level 2.7 g/dL (3.5-5.2); Alkaline Phosphatase 383 U/L (40-130); Anion Gap 11.4 (5-19); Aspartate Amino Transferase 50 U/L (0-40); Blood Urea Nitrogen 16 mg/dL (8-23); Calcium 8.3 mg/dL (8.5-10.5); Carbon Dioxide 27 mmol/L (22-29); Chloride 104 mmol/L (98-107); Chol HDL Ratio 2.62 mg/dL (1.0-5.00); Cholesterol 160 mg/dL (0-200); Globulin 3.2 g/dL (1.3-4.6); Glomerular Filtration Rate 112.8 mL/min (90-130); Glucose 80 mg/dL (65-115); HDL Cholesterol 61 mg/dL (60-100); LDL Cholesterol Calculated 88 mg/dL (50-129); LDL HDL Ratio 1.44 RATIO (0.00-3.22); Magnesium 1.6 mg/dL (1.7-2.3); Osmolality Calculated 286 mOsm/kg (285-295); Phosphorus 3.4 mg/dL (2.5-4.5); Potassium 4.4 mmol/L (3.5-5.1); Sodium 138 mmol/L (136-145); Total Bilirubin 1.8 mg/dL (0.15-1.2); Total Protein 5.9 g/dL (6.6-8.7); Triglycerides 54 mg/dL (0-150)
[2022-10-26 01:50] LABS: Estmated Average Glucose 143; Hemoglobin A1C 6.6 % (4.0-6.0)
[2022-10-26 01:53] LABS: Troponin 5 6HR Delta 11.81 ng/L (0-12)
[2022-10-26 02:09] LABS: Folate Level 12.5 ng/mL (4.5-32.2)
[2022-10-26] MEDS: FUROsemide 10 mg/mL SDV 4mL 40 MG IVP ×2 (05:08→17:23)
[2022-10-26 08:27] LABS: Glucose Point of Care 84 mg/dL (70-110)
[2022-10-26] MEDS: aspirin 81 mg EC Tablet PO (08:30)
[2022-10-26] MEDS: gabapentin 400 mg Capsule PO ×3 (08:30→21:39)
[2022-10-26] MEDS: lisinopril 10 mg Tablet PO (08:30)
[2022-10-26 11:07] LABS: Glucose Point of Care 196 mg/dL (70-110)
[2022-10-26] MEDS: insulin lispro 100 unit/1 mL SUBCUT ×2 (11:45→17:23)
--- NOTE | 2022-10-26 14:19 | PM.PN ---
Subjective Subjective: No acute events overnight. Today morning seen laying comfortably in bed. Family at bedside. Denies any nausea vomiting, headache. States feeling better. Remains on room air. Hemodynamically stable. Blood work appreciated for stable CBC, stable potassium, mild hypomagnesemia, mildly improved LFTs. Vitals/I&O/Wt Last Vital Signs Temp 98.5 F 10/26/22 12:00 Pulse 78 10/26/22 12:00 Resp 16 10/26/22 12:00 BP 124/66 10/26/22 12:00 Pulse Ox 92 10/26/22 12:00 O2 Del Method Room Air 10/26/22 12:00 10/25/22 10/26/22 10/26/22 22:59 06:59 14:59 Intake Total 500 / 500 240 / 240 Output Total 400 / 400 200 / 600 250 / 250 Balance -400 / -400 300 / -100 -10 / -10 Weight last 48 hrs Weight 75.75 kg Physical Exam Narrative: General: No acute distress, AO x3, pleasant, cachectic HEENT: PERRLA, pupils bilaterally equal and reactive Chest: Normal vesicular breath sounds, no added sounds, decreased air entry left middle and lower zone CVS: S1-S2 regular, heart sounds muffled, no tachycardia, no gallops, no rubs Abdomen: Soft, distended nontender, no organomegaly, bowel sounds present Neuro: No focal deficits, no facial deformity, AO x3, power 5/5 in all limbs Data 10/26/22 01:17 10/26/22 01:17 A&P Assessment and plan (1) Pleural effusion on left: (2) Volume overload: (3) Cirrhosis of liver: (4) Congestive heart failure: (5) CAD (coronary artery disease): (6) Controlled type 2 diabetes mellitus with diabetic neuropathy: (7) Abdominal distention: Plan Abdominal distention, fluid overload, left-sided pleural effusion: Most likely in setting of congestive heart failure. Most likely chronic diastolic heart failure. Cannot rule out in setting of liver cirrhosis. Plan for echocardiogram after left-sided thoracentesis. Awaiting thoracentesis. CT abdomen pelvis results appreciated for liver cirrhosis and ascites. Continue with IV Lasix 40 mg twice daily. Plan to discharge on oral Lasix 40 mg daily along with spironolactone. Troponin cycled negative, appreciate TSH, B12, folate results. Strict input output charting, daily weights. CAD: History of CABG: No active chest pain. Appreciate A1c, lipid panel. Continue home dose of aspirin. Hold off on statins for now. Echocardiogram as above. Type 2 diabetes mellitus: Insulin sliding scale at moderate dose protocol. A1c 6.6. Hypertension: Not on antihypertensive at home. Goal blood pressure less than 140/90 mmHg. Continue with oral lisinopril 10 mg daily. Blood pressure better controlled. Uptitrate as per blood pressures. Cardiac carb consistent diet. Heparin 5000 every 12 hourly for DVT prophylaxis. Protonix for PUD prophylaxis. Attestations Medical Necessity Statement*: Requires further hospitalization while patient awaits thoracentesis and echocardiogram in setting of congestive heart failure. Diagnoses Pleural effusion on left J90 Volume overload E87.70 Cirrhosis of liver K74.60 Congestive heart failure I50.9 CAD (coronary artery disease) I25.10 Controlled type 2 diabetes mellitus with diabetic neuropathy E11.40 Abdominal distention R14.0
--- NOTE | 2022-10-26 14:56 | XR_ITS ---
WS: [id number] XR chest 1V portable [id number] REASON FOR EXAM: thoracentesis FINDINGS: Compared to the examination of the previous day there has been removal of a significant volume of ple ural fluid from the left hemithorax. The left lower lobe did not reexpand completely leaving a small loculated hydropneumothorax. The right chest remains clear. XR/XR chest 1V portable [id number] IMPRESSION: Failure of left lower lobe to completely reexpand, postthoracentesis, leaving s mall loculated hydropneumothorax.
--- NOTE | 2022-10-26 16:21 | USCV_ITS ---
Altaf Rascon Age: 67 Gender: M : 1955 Exam Date: 10/26/2022 20:42 Ordering Phys: Roman Bell MD Technologist: JEN [place] [facility] [place] Indication: chf BP: / HR: 69 Rhythm: Sinus Technical Quality: Adequate MEASUREMENTS (Male / Female) Normal Values 2D ECHO LV Diastolic Diameter PLAX 4.2 cm 4.2 - 5.9 / 3.9 - 5.3 cm LV Systolic Diameter PLAX 2.8 cm IVS Diastolic Thickness 0.8 cm 0.6 - 1.0 / 0.6 - 0.9 cm IVS Systolic Thickness 1.3 cm LVPW Diastolic Thickness 0.7 cm 0.6 - 1.0 / 0.6 - 0.9 cm LVPW Systolic Thickness 1.1 cm LVOT Diameter 1.9 cm LV Ejection Fraction 2D Teich 64.0 % LV Ejection Fraction MOD 2C 74.4 % LV Ejection Fraction 2C AL 73.3 % LA Diameter 3.5 cm IVC Diameter 2.5 cm M-MODE Aortic Annulus Diameter 2.6 cm LA Ao Ratio MM 1.5 MV E Point Septal Separation 0.3 cm DOPPLER AV Peak Velocity 133.0 cm/s LVOT Peak Velocity 146.0 cm/s AV Area Cont Eq vti 3.1 cm squared AV Area Cont Eq pk 3.2 cm squared MV Area PHT 3.6 cm squared Mitral E to A Ratio 1.2 MV E' Velocity 41.5 cm/s Mitral E to MV E' Ratio 10.4 Mitral E to LV E' Lateral Ratio 12.6 Mitral E to LV E' Septal Ratio 8.9 TR Peak Velocity 290.0 cm/s TR Peak Gradient 33.6 mmHg TV Peak E Velocity 52.0 cm/s Right Atrial Pressure 6.0 mmHg Pulmonary Artery Systolic Pressu 39.6 mmHg PV Peak Velocity 105.0 cm/s FINDINGS Left Ventricle Normal left ventricular size, systolic function and wall thickness with estimated ejection fraction of 60%, with no regional wall motion abnormalities. Normal left ventricular wall thickness. Normal diastolic filling pattern. Right Ventricle The right ventricle is normal in size and function. Right Atrium The right atrium is normal in size. Left Atrium Mildly increased left atrial size. Mitral Valve Structurally normal mitral valve without significant stenosis or prolapse. There is mild mitral regurgitation. Aortic Valve Structurally normal aortic valve without significant sclerosis or stenosis. There is no aortic regurgitation. Tricuspid Valve Structurally normal tricuspid valve without significant stenosis .there is mild regurgitation. Pulmonary artery systolic pressure is mildly increased Pulmonic Valve Structurally normal pulmonic valve without significant stenosis. There is no pulmonic regurgitation. Pericardium Normal pericardium without effusion. Aorta Normal ascending aorta dimension. IVC The inferior vena cava appears normal. CONCLUSIONS Griselda De La Rosa MD (Electronically Signed) Final Date: 27 October 2022 10:58 S
[2022-10-26 16:44] LABS: Body Fluid Specific Gravity 1.012
[2022-10-26 16:46] LABS: Body Fluid Polynuclear #Cells 0.016; Body Fluid WBC 266 /uL
[2022-10-26 17:06] LABS: Glucose Point of Care 225 mg/dL (70-110)
--- NOTE | 2022-10-26 17:23 | US_ITS ---
WS: [id number] ULTRASOUND-GUIDED THORACENTESIS CLINICAL INFORMATION: large left pleural effusion COMPARISON: None. PROCEDURE: Informed consent: The risks, benefits, and alternatives of the procedure were discussed with the ty ent. Verbal and written consent was obtained. Timeout: A timeout was performed to confirm the correct patient, procedure, and site. Site: LEFT chest Preparation: A suitable skin site was identified. The patient was prepped and draped in usual sterile fashion. Lidocaine 1% was used for local anesthesia. Catheter: 4 Greek One-Step catheter. Fluid Volume: 1100 ml Color: Clear yellow Sent to the laboratory for requested diagnostic tests. / thoracentesis [id number] IMPRESSION: 1. Uncomplicated ultrasound-guided thoracentesis with removal of 1100 cc 2. Post thoracentesis chest radiograph demonstrates a septation LEFT lower lobe . This likely represents trapped or fibrotic lung with incomplete reexpansion. There appears to be lung markings peripheral to this area. Recommend interval c hest radiograph follow-up to assess change. Notified Roman Bell MD at 10/26/2022 4:18 PM.
[2022-10-26 17:36] LABS: Apprearance, Body Fluid CLOUDY; Color, Body Fluid AMBER
[2022-10-26 17:37] LABS: Fluid Laterality LEFT CHEST
[2022-10-26 18:07] LABS: Albumin Body Fluid 0.9 g/dL; Fluid Alkaline Phos. 39 IU/L; LDH Body Fluid 47 U/L
[2022-10-26 18:08] LABS: Amylase Body Fluid 13 U/L; Cholesterol Body Fluid 20 mg/dL (0-200); Cyto Order Verification No Order; PATH Referral YES; Triglycerides Body Fluid 13 mg/dL (0-150); Uric Acid Body Fluid 4 mg/dL
--- NOTE | 2022-10-26 20:07 | PC.NURSE ---
Night hospitalist notified of blood pressures being low, most recent was 88/47. The patient did have 1100 of fluid taken off today during left thoracentesis. advised nurse to watch blood pressure throughout the night and said that it should come up. Patient unsymptomatic.
[2022-10-26 20:54] LABS: Glucose Point of Care 120 mg/dL (70-110)
--- NOTE | 2022-10-26 21:00 | XRR_ITS ---
PROCEDURE INFORMATION: Exam: XR Chest Exam date and time: 10/26/2022 4:28 PM Age: 67 years old Clinical indication: Screening exam; Other screening; Additional info: Post thora TECHNIQUE: Imaging protocol: Radiologic exam of the chest. Views: 1 view. COMPARISON: CR XR chest 1V portable [id number] 10/26/2022 2:01 PM FINDINGS: Lungs: Left lower lobe atelectasis versus minimal infiltrate. Pleural spaces: Small left pleural effusion. Heart/Mediastinum: Cardiomegaly. Bones/joints: Sternotomy wires. XR/XR chest 1V portable [id number] IMPRESSION: 1. Small left pleural effusion. 2. Left lower lobe atelectasis versus minimal infiltrate. 3. Cardiomegaly. 4. Sternotomy wires.
[2022-10-27] VITALS: BP 133/73; PULSE 72; RESP 19; TEMP 36.8; O2SAT 96
[2022-10-27 03:28] LABS: Basophils # 0.1 10^3/uL (0.0-0.1); Basophils % 0.9 %; Eosinophils # 0.4 10^3/uL (0.0-0.8); Eosinophils % 6.9 %; Hematocrit 36.4 % (42.0-52.0); Hemoglobin 11.7 g/dL (11.7-16.6); Lymphocytes # 1.5 10^3/uL (0.8-4.8); Lymphocytes % 25.7 %; Mean Corpuscular HGB Conc 32.1 g/dL (30.0-36.0); Mean Corpuscular Hemoglobin 31.5 pg (28.0-34.0); Mean Corpuscular Volume 98.1 fl (80-94); Mean Platelet Volume 10.8 fL (7.4-10.4); Monocytes # 0.7 10^3/uL (0.2-0.9); Monocytes % 11.5 %; Neutrophils # 3.19 10^3/uL (1.8-7.7); Neutrophils % 54.7 %; Nucleated Red Blood Cells % 0 %; Platelet Count 86 10^3/cmm (130-400); Red Blood Count 3.71 10^6/uL (4.1-5.3); Red Cell Distribution Width 13.4 % (12.1-15.1); White Blood Count 5.8 10^3/uL (4.0-10.0)
[2022-10-27 03:41] LABS: Alanine Aminotransferase 22 U/L (0-41); Albumin Level 2.6 g/dL (3.5-5.2); Alkaline Phosphatase 363 U/L (40-130); Anion Gap 11.7 (5-19); Aspartate Amino Transferase 49 U/L (0-40); Blood Urea Nitrogen 28 mg/dL (8-23); Calcium 8.2 mg/dL (8.5-10.5); Carbon Dioxide 29 mmol/L (22-29); Chloride 101 mmol/L (98-107); Globulin 3.1 g/dL (1.3-4.6); Glomerular Filtration Rate 74.8 mL/min (90-130); Glucose 171 mg/dL (65-115); Osmolality Calculated 294 mOsm/kg (285-295); Potassium 4.7 mmol/L (3.5-5.1); Sodium 137 mmol/L (136-145); Total Bilirubin 1.6 mg/dL (0.15-1.2); Total Protein 5.7 g/dL (6.6-8.7)
[2022-10-27 04:00] VITALS: BP 161/80; PULSE 73; RESP 17; TEMP 36.7; O2SAT 97
[2022-10-27] MEDS: FUROsemide 10 mg/mL SDV 4mL 40 MG IVP (05:40)
[2022-10-27 05:50] VITALS: PULSE 73
--- NOTE | 2022-10-27 06:00 | XRR_ITS ---
PROCEDURE INFORMATION: Exam: XR Chest Exam date and time: 10/27/2022 5:06 AM Age: 67 years old Clinical indication: Other: Post thorac; Prior surgery; Surgery date: 3-7 days post-operative; Additional info: Post thora. History of hydropneumothorax. TECHNIQUE: Imaging protocol: Radiologic exam of the chest. 1image(s) are provided. Views: 1 view. COMPARISON: CR XR chest 1V portable [id number] 10/26/2022 4:28 PM FINDINGS: Tubes, catheters and devices: The sternal wires are aligned. Lungs: No interval right lobar consolidation or significant effusion is currently appreciated. There appear to be some granulomatous type calcifications including herve. Pleural spaces: There is history of a left hydropneumothorax with incomplete expansion and ex vacuo type appearance. The overall configuration is relatively similar. No interval apical pneumothorax is currently appreciated. Heart/Mediastinum: The cardiomediastinal silhouette is upper normal in size.This can be seen with central averaging as well as herve enlargement.No cardiac decompensation is appreciated. Diaphragm: Left hemidiaphragm is obscured. Bones/joints: Osseous alignment is maintained.No interval displaced fracture or dislocation is appreciated. Soft tissues: No radiopaque foreign body or subcutaneous emphysema is appreciated. Other findings: No significant interval changes are appreciated. XR/XR chest 1V portable [id number] IMPRESSION: There is history of a left hydropneumothorax appearing relatively similar compared to the previous studies. This could represent incomplete expansion and scarring related change.No significant change of parenchymal aeration is appreciated.
[2022-10-27 06:30] LABS: Glucose Point of Care 197 mg/dL (70-110)
[2022-10-27 07:54] VITALS: PULSE 78; RESP 16; O2SAT 98
[2022-10-27 08:00] VITALS: BP 152/70; PULSE 78; RESP 19; TEMP 36.7; O2SAT 96
[2022-10-27] MEDS: aspirin 81 mg EC Tablet PO (08:14)
[2022-10-27] MEDS: gabapentin 400 mg Capsule PO (08:14)
[2022-10-27] MEDS: lisinopril 10 mg Tablet PO (08:14)
[2022-10-27] MEDS: insulin lispro 100 unit/1 mL SUBCUT (08:14)
[2022-10-27] MEDS: HYDROcodone-acetaminophen 10-325 mg Tablet 1 TAB PO (08:23)
--- NOTE | 2022-10-27 10:04 | PC.CHAP ---
Pastoral Care Encounter/Spiritual Assessment Type of Contact [] Declined jukebox routeman visit [] Patient/Family/Request visit [] Outpatient visit [] Follow-up visit [] Physician referral [] Code/Alert [] Routine visit [] Staff referral [] Actively dying [] Patient sleeping [] Family support [] [] Out of room [] Palliative care [] [] Receiving care in room [] Pre-surgical visit [] Trauma [] Long length of stay [] ICU visit [] Other: Relational/Emotional Strength [] Patient feels connected with others/family/visitors/staff [] Distress [] Loneliness/isolation [] Abandonment Spirituality of Patient [] Person of Jackie [] Attends Jainism of their Jackie [] Believes in Prayer [] Reads Bible or Adventist materials [] There are Spiritual issues to be addressed Caterer Helper Interventions [] Prayer [] Active listening [] Non-anxious presence [] Spiritual/emotional support [] Crisis/trauma care [] Spiritual counseling [] Bereavement support [] Provided bereavement packet [] Provided Bible/devotional materials [] Provided toy/stuffed animal, coloring book to patient or family member [] Provided Communion [] Anointing/[place] [] Salvation [] Completed spiritual assessment [] Other: Impact on Illness or Injury [] Angry [] Fearful [] Anxious [] Often cries [] Exhaustion [] Unable to work [] Unable to attend mormon [] Unable to walk/stand [] Unable to read [] Unable to drive [] Unable to eat/drink [] Unable to sleep [] Unable to be with family [] Patient intubated [] Other: Summary Time spent with patient
[2022-10-27 10:46] LABS: Glucose Point of Care 162 mg/dL (70-110)
--- NOTE | 2022-10-27 11:29 | PM.DCS ---
Discharge Providers Date of Admission: 10/26/22 18:38 Date of Discharge: October 27, 2022 Attending Provider at Admission: Roman Bell MD Attending Provider at Discharge: Roman Bell MD Primary Care Provider: Nathan Torres MD Diagnoses at Discharge Discharge Diagnosis (1) Pleural effusion on left: Status: Acute (2) Volume overload: Status: Acute (3) Cirrhosis of liver: Status: Acute (4) Congestive heart failure: Status: Acute (5) CAD (coronary artery disease): Status: Acute (6) Controlled type 2 diabetes mellitus with diabetic neuropathy: Status: Acute (7) Abdominal distention: Status: Acute Reason for Visit Reason for Visit: SOB Hospital Course Hospital Course Altaf Rascon is a 67 year old male with past medical history of CAD, multiple stent placement, post CABG, diastolic heart failure with last echocardiogram in November 2021, history of liver cirrhosis secondary to alcohol abuse in the past, type 2 diabetes mellitus who presented to the ER today with complaining of increased swelling in her lower limb, abdomen and slight difficulty in breathing which has been ongoing and getting worse for last 3 weeks.? Symptoms are not preceded by chest pain, nausea or vomiting.? In the ER yesterday when he had, he was given IV Lasix after which she started feeling better but he was also told that he has fluid around his lungs so he came to the ER today. Patient was admitted to the hospital for evaluation and management of abdominal distention and symptoms consistent with fluid overload. On admission he was found to have left-sided pleural effusion for which she underwent thoracentesis. Post thoracentesis patient had limited expansion of the lungs. Fluid studies were consistent with transudative pattern. On admission patient was found to have slight elevated blood pressure for which lisinopril was added to the medication list and he tolerated the treatment well. Echocardiogram was done which was consistent with normal EF and diastolic filling pattern without valvular abnormality. It is believed patient's symptoms are most likely in setting of chronic liver cirrhosis. He has been discharged in medically stable condition on low-dose Lasix, spironolactone and also advised for fluid restriction and salt restriction. He is to follow-up with a primary care provider within next 1 week for repeat BMP. Physical Exam Narrative: General: No acute distress, AO x3, pleasant, cachectic HEENT: PERRLA, pupils bilaterally equal and reactive Chest: Normal vesicular breath sounds, no added sounds, decreased air entry left middle and lower zone CVS: S1-S2 regular, heart sounds muffled, no tachycardia, no gallops, no rubs Abdomen: Soft, distended nontender, no organomegaly, bowel sounds present Neuro: No focal deficits, no facial deformity, AO x3, power 5/5 in all limbs Discharge Data Studies Completed and Pending Completed Studies During Hospitalization Category Date Time Status CT abdomen pelvis wo con [id number] Routine Cat Scan 10/25/22 18:01 Completed XR chest 1V portable [id number] QAM Exams 10/27/22 06:00 Completed XR chest 1V portable [id number] Routine Exams 10/26/22 21:00 Completed XR chest 1V portable [id number] Stat Exams 10/25/22 12:53 Completed XR chest 1V portable [id number] Stat Exams 10/26/22 14:56 Completed CV. echo complete* [id number] Routine Ultrasound 10/26/22 16:21 Completed US thoracentesis [id number] Routine Ultrasound 10/26/22 17:23 Completed Pending at discharge Category Date Time Status Anaerobic Culture Routine Lab 10/26/22 14:55 Received Body Fluid Culture & GS Routine Lab 10/26/22 14:55 Received Fungal Culture not HR/SK/BL Routine Lab 10/26/22 14:55 Received Mycobacteria, Culture w/Fluor Routine Lab 10/26/22 14:55 Received Cytology [PTH] Routine Pth 10/26/22 16:19 Ordered Radiology Impressions Abdomen/Pelvis CT 10/25/22 18:01 IMPRESSION: 1. Negative for focal acute inflammatory process in the abdomen or pelvis. 2. Large left pleural effusion. 3. Sternotomy wires. 4. Emphysematous changes suspected. 5. Lingular atelectasis versus infiltrate. 6. Large amount of ascites. 7. Cirrhotic liver. 8. Spleen enlarged to 14 cm. 9. Anasarca. 10. Constipation. 11. Minimal diverticulosis without diverticulitis. 12. Right kidney punctate nonobstructing calyceal stone. Thoracentesis Ultrasound 10/26/22 17:23 IMPRESSION: 1. Uncomplicated ultrasound-guided thoracentesis with removal of 1100 cc 2. Post thoracentesis chest radiograph demonstrates a septation LEFT lower lobe. This likely represents trapped or fibrotic lung with incomplete reexpansion. There appears to be lung markings peripheral to this area. Recommend interval chest radiograph follow-up to assess change. Notified Roman Bell MD at 10/26/2022 4:18 PM. Chest X-Ray 10/27/22 06:00 IMPRESSION: There is history of a left hydropneumothorax appearing relatively similar compared to the previous studies. This could represent incomplete expansion and scarring related change.No significant change of parenchymal aeration is appreciated. Echocardiogram: FINDINGS ?Left Ventricle ?Normal left ventricular size, systolic function and wall ?thickness with estimated ejection fraction of 60%, with no ?regional wall motion abnormalities.? Normal left ventricular ?wall thickness. Normal diastolic filling pattern. ?Right Ventricle ?The right ventricle is normal in size and function. ?Right Atrium ?The right atrium is normal in size. ?Left Atrium ?Mildly increased left atrial size. ?Mitral Valve ?Structurally normal mitral valve without significant stenosis or ?prolapse.? There is mild mitral regurgitation. ?Aortic Valve ?Structurally normal aortic valve without significant sclerosis ?or stenosis.? There is no aortic regurgitation. ?Tricuspid Valve ?Structurally normal tricuspid valve without significant stenosis ?.there is mild regurgitation.? Pulmonary artery systolic ?pressure is mildly increased ?Pulmonic Valve ?Structurally normal pulmonic valve without significant stenosis.? ?There is no pulmonic regurgitation. ?Pericardium ?Normal pericardium without effusion. ?Aorta ?Normal ascending aorta dimension. ?IVC ?The inferior vena cava appears normal. ?CONCLUSIONS ?Youf Estrella RAI ?(Electronically Signed) ?Final Date:? ? ? 27 October 2022 ? 10:58 Laboratory Results WBC 5.8 10^3/uL (4.0-10.0) 10/27/22 03:09 RBC 3.71 10^6/uL (4.1-5.3) L 10/27/22 03:09 Hgb 11.7 g/dL (11.7-16.6) 10/27/22 03:09 Hct 36.4 % (42.0-52.0) L 10/27/22 03:09 MCV 98.1 fl (80-94) H 10/27/22 03:09 MCH 31.5 pg (28.0-34.0) 10/27/22 03:09 MCHC 32.1 g/dL (30.0-36.0) 10/27/22 03:09 RDW 13.4 % (12.1-15.1) 10/27/22 03:09 Plt Count 86 10^3/cmm (130-400) L 10/27/22 03:09 MPV 10.8 fL (7.4-10.4) H 10/27/22 03:09 Neut % (Auto) 54.7 % 10/27/22 03:09 Lymph % (Auto) 25.7 % 10/27/22 03:09 Charles % (Auto) 11.5 % 10/27/22 03:09 Eos % (Auto) 6.9 % 10/27/22 03:09 Baso % (Auto) 0.9 % 10/27/22 03:09 Neut # (Auto) 3.19 10^3/uL (1.8-7.7) 10/27/22 03:09 Lymph # (Auto) 1.5 10^3/uL (0.8-4.8) 10/27/22 03:09 Charles # (Auto) 0.7 10^3/uL (0.2-0.9) 10/27/22 03:09 Eos # (Auto) 0.4 10^3/uL (0.0-0.8) 10/27/22 03:09 Baso # (Auto) 0.1 10^3/uL (0.0-0.1) 10/27/22 03:09 Nucleated RBC % (auto) 0 % 10/27/22 03:09 Nucleated RBCs # 0.0 /100WBC 10/27/22 03:09 Differential Comment Yes 10/26/22 14:55 PT 17.00 SECONDS (12.1-14.9) H 10/25/22 14:39 INR 1.34 (0.8-1.2) H 10/25/22 14:39 Sodium 137 mmol/L (136-145) 10/27/22 03:09 Potassium 4.7 mmol/L (3.5-5.1) 10/27/22 03:09 Chloride 101 mmol/L (98-107) 10/27/22 03:09 Carbon Dioxide 29 mmol/L (22-29) 10/27/22 03:09 Anion Gap 11.7 (5-19) 10/27/22 03:09 BUN 28 mg/dL (8-23) H 10/27/22 03:09 Creatinine 1.0 mg/dL (0.7-1.2) 10/27/22 03:09 GFR Calculation 74.8 mL/min (90-130) L 10/27/22 03:09 Glucose 171 mg/dL (65-115) H 10/27/22 03:09 POC Glucose 162 mg/dL (70-110) H 10/27/22 10:37 Estimat Average Glucose 143 10/26/22 01:17 Hemoglobin A1c 6.6 % (4.0-6.0) H 10/26/22 01:17 Calculated Osmolality 294 mOsm/kg (285-295) 10/27/22 03:09 Calcium 8.2 mg/dL (8.5-10.5) L 10/27/22 03:09 Phosphorus 3.4 mg/dL (2.5-4.5) 10/26/22 01:17 Magnesium 1.6 mg/dL (1.7-2.3) L 10/26/22 01:17 Iron 78 ug/dL (59-158) 10/25/22 15:19 TIBC 179 mcg/dl 10/25/22 15:19 % Saturation 43.5 % (20-50) 10/25/22 15:19 Unsat Iron Binding 101 ug/dL (112-347) L 10/25/22 15:19 Total Bilirubin 1.6 mg/dL (0.15-1.2) H 10/27/22 03:09 AST 49 U/L (0-40) H 10/27/22 03:09 ALT 22 U/L (0-41) 10/27/22 03:09 Alkaline Phosphatase 363 U/L (40-130) H 10/27/22 03:09 Troponin T Baseline 50 ng/L (0-15) H 10/25/22 17:51 Troponin T 120 Minute 55.92 ng/L (0-15) H 10/25/22 19:55 Delta Troponin T 5.92 ABS# (0-10) 10/25/22 19:55 Troponin T Hi Sens 6Hr 61.81 ng/L (0-15) H 10/25/22 01:17 Troponin T Hi Sens 6Hr Delta 11.81 ng/L (0-12) 10/25/22 01:17 NT-Pro-B Natriuret Pep 392 pg/mL (0-125) H 10/25/22 15:19 Total Protein 5.7 g/dL (6.6-8.7) L 10/27/22 03:09 Albumin 2.6 g/dL (3.5-5.2) L 10/27/22 03:09 Globulin 3.1 g/dL (1.3-4.6) 10/27/22 03:09 Triglycerides 54 mg/dL (0-150) 10/26/22 01:17 Cholesterol 160 mg/dL (0-200) 10/26/22 01:17 LDL Cholesterol, Calc 88 mg/dL (50-129) 10/26/22 01:17 HDL Cholesterol 61 mg/dL (60-100) 10/26/22 01:17 LDL/HDL Ratio 1.44 RATIO (0.00-3.22) 10/26/22 01:17 Cholesterol/HDL Ratio 2.62 mg/dL (1.0-5.00) 10/26/22 01:17 Vitamin B12 1839 pg/mL (232-1245) H 10/25/22 15:19 Folate 12.5 ng/mL (4.5-32.2) 10/26/22 01:17 Procalcitonin 0.16 ng/mL (0-0.5) 10/25/22 15:19 TSH 2.81 uIU/mL (0.27-4.20) 10/25/22 15:19 Urine Color Yellow (Yellow) 10/25/22 20:55 Urine Appearance Clear (CLEAR) 10/25/22 20:55 Urine pH 5 (5-7) 10/25/22 20:55 Ur Specific [place] 1.005 (1.005-1.030) 10/25/22 20:55 Urine Protein Neg (Negative) 10/25/22 20:55 Urine Glucose (UA) 4+ (Normal) H 10/25/22 20:55 Urine Ketones Negative (Negative) 10/25/22 20:55 Urine Blood Neg (Negative) 10/25/22 20:55 Urine Nitrate Negative (Negative) 10/25/22 20:55 Urine Bilirubin Neg (Negative) 10/25/22 20:55 Urine Urobilinogen Norm mg/dL (Negative) 10/25/22 20:55 Ur Leukocyte Esterase Negative (Negative) 10/25/22 20:55 Fluid Color Svetlana 10/26/22 14:55 Fluid Appearance Cloudy 10/26/22 14:55 Fluid Specific Grav 1.012 10/26/22 14:55 Fluid pH 8.0 10/26/22 14:55 Fluid WBC 266 /uL 10/26/22 14:55 Fluid RBC 3.000 10^3/uL 10/26/22 14:55 Fld Polynuclear WBCs # 0.016 10/26/22 14:55 Fld Polynuclear WBCs % 6.100 % 10/26/22 14:55 Fl Mononucl WBCs #(Auto) 0.250 10/26/22 14:55 Fl Mononuclear % Auto 93.900 % 10/26/22 14:55 Fld Crystal Laterality Left chest 10/26/22 14:55 Fluid Glucose 140.0 mg/dL 10/26/22 14:55 Fluid Albumin 0.9 g/dL 10/26/22 14:55 Fluid LDH 47 U/L 10/26/22 14:55 Fluid Amylase 13 U/L 10/26/22 14:55 Fluid Alk Phosphatase 39 IU/L 10/26/22 14:55 Fluid Cholesterol 20 mg/dL (0-200) 10/26/22 14:55 Fluid Triglycerides 13 mg/dL (0-150) 10/26/22 14:55 Fluid Uric Acid 4 mg/dL 10/26/22 14:55 Pleural Total Protein 1.0 g/dL 10/26/22 14:55 Urine Opiates Screen Positive ng/mL (Negative) H 10/25/22 20:55 Ur Barbiturates Screen Negative ng/mL (Negative) 10/25/22 20:55 Ur Phencyclidine Scrn Negative ng/mL (Negative) 10/25/22 20:55 Ur Amphetamines Screen Negative ng/mL (Negative) 10/25/22 20:55 U Benzodiazepines Scrn Negative ng/mL (Negative) 10/25/22 20:55 Urine Cocaine Screen Negative ng/mL (Negative) 10/25/22 20:55 U Marijuana (THC) Screen Negative ng/mL (Negative) 10/25/22 20:55 Ethyl Alcohol < 10 mg/dL (0-10) 10/25/22 15:19 HIV 1&2 Ab & HIV 1 Ag Non-reactive (Non-Reactiv) 10/25/22 19:55 HIV 1&2 Antibody Non-reactive (Non-Reactiv) 10/25/22 19:55 Vitals Last Vital Signs Temp 98.1 F 10/27/22 08:00 Pulse 78 10/27/22 08:00 Resp 19 H 10/27/22 08:00 BP 152/70 10/27/22 08:00 Pulse Ox 96 10/27/22 08:00 O2 Del Method Room Air 10/27/22 08:00 Discharge Plan Discharge Patient Disposition: Home Condition: Stable Prescriptions: New lisinopril 10 mg Tablet 10 mg PO DAILY Qty: 30 0RF Lasix 20 mg tablet 20 mg PO DAILY Qty: 30 0RF spironolactone 25 mg tablet 25 mg PO DAILY Qty: 30 0RF Continued aspirin 81 mg tablet,delayed release (DR/EC) 81 mg PO DAILY glipizide 5 mg tablet extended release 24hr 5 mg PO DAILY Januvia 100 mg tablet 100 mg PO DAILY gabapentin 400 mg capsule 400 mg PO TID 30 Days Qty: 90 1RF hydrocodone-acetaminophen 10-325 mg tablet 1 tab PO Q4H PRN (Reason: Pain) alprazolam 0.5 mg tablet 0.25 - 0.5 mg PO Q8H PRN (Reason: Anxiety) Rx Instructions: Take 1/2 to 1 tablet every 8 hours as needed for anxiety nitroglycerin 0.4 mg tablet, sublingual 0.4 mg sublingual PRN PRN (Reason: Chest Pain) cetirizine 10 mg tablet 10 mg PO DAILY PRN (Reason: Allergy Symptoms) dexlansoprazole [Dexilant] 60 mg capsule,biphase delayed releas 60 mg PO BEDTIME fluticasone propion-salmeterol [Wixela Inhub] 250-50 mcg/dose blister with device 1 inh INHALATION BID doxepin 25 mg capsule 25 mg PO BEDTIME albuterol sulfate 90 mcg/actuation HFA aerosol inhaler 2 puff INHALATION Q6H PRN (Reason: Shortness Of Breath Or Wheezing) Farxiga 5 mg tablet 5 mg PO DAILY Discharge Orders: Discharge Order (Routine); Ordered 10/27/22 Ordered By: Roman Bell Referrals: Nathan Torres MD [Primary Care Provider] - 7-10 days (Please call Dr. Torres's Office on Saturday at [phone] to schedule a follow up appointment for 7-10 days. Thank you. ) Discharge Diet: Cardiac Discharge Activity: Resume usual activity and Increase activity as tolerated Patient Instructions: Spironolactone (By mouth) ([place], Karospir), Lisinopril (By mouth) (Prinivil, Zestril), Furosemide (By mouth) (Lasix), Heart Failure (DC), Coronary Artery Disease (DC), Pleural Effusion (DC), CHF Stoplight, Opioid Safety Activity Restrictions/Additional Instructions: Take Lasix 20 mg oral daily along with spironolactone 25 mg oral daily. You will be on lisinopril 10 mg oral daily which is the blood pressure medication. Please check your blood pressure daily at home maintain a blood pressure diary. Follow-up with your primary care provider with the blood pressure diary for further adjustment of antihypertensive if needed. He should have repeat BMP in 1 week. Please maintain fluid restriction up to 1500 cc and salt restriction to 2 g/day. Discharge Attestations Time Spent in Discharge Care*: greater than 30 min Specific Discharge Activities: educating patient, educating and/or supporting family/caregiver, discussing with pcp/other providers, discussing with showcase trimmer/social workers/dc planners, documenting/other paperwork and evaluating patient/reviewing data Status at Discharge: Cognitive status at discharge: cognitively intact, Behavioral status at discharge: cooperative, Functional status at discharge: independent ambulation, Overall status at discharge: patient is back to baseline Quality Metrics Clinical Quality Measures [ No reported AMI, CVA or VTE this stay] Coding Level of Care Code 21168 Total time (in minutes) for Discharge: 50 Diagnoses Pleural effusion on left J90 Volume overload E87.70 Cirrhosis of liver K74.60 Congestive heart failure I50.9 CAD (coronary artery disease) I25.10 Controlled type 2 diabetes mellitus with diabetic neuropathy E11.40 Abdominal distention R14.0
[2022-10-27 12:13] VITALS: BP 152/70; PULSE 78; RESP 19; TEMP 36.7; O2SAT 96
--- NOTE | 2022-10-27 12:32 | PC.NURSE ---
discharge instructions given and explained.pt verb understanding of instructioins.discharged via w/c to exit at this time.son to drive pt home
== END 2022-10-27 12:33 | disposition home or self-care (01) | DRG 433 ==
LOC: ER 16:23 → CSU 17:34
PROVIDERS: Admitting Provider Student in an Organized Health Care Education/Training Program; Emergency Provider Emergency Medicine; PCP Family Medicine; Visit Provider Student in an Organized Health Care Education/Training Program
DX: K70.30 Alcoholic cirrhosis of liver without ascites (principal); I50.32 Chronic diastolic (congestive) heart failure; J91.8 Pleural effusion in other conditions classified elsewhere; I11.0 Hypertensive heart disease with heart failure; E78.5 Hyperlipidemia, unspecified; E11.40 Type 2 diabetes mellitus with diabetic neuropathy, unspecified; I25.10 Atherosclerotic heart disease of native coronary artery without angina pectoris; Z95.1 Presence of aortocoronary bypass graft; Z95.5 Presence of coronary angioplasty implant and graft; F17.210 Nicotine dependence, cigarettes, uncomplicated; Z79.82 Long term (current) use of aspirin; M15.9 Polyosteoarthritis, unspecified; Z79.891 Long term (current) use of opiate analgesic; M51.36 Other intervertebral disc degeneration, lumbar region; G89.29 Other chronic pain; E83.42 Hypomagnesemia; F10.10 Alcohol abuse, uncomplicated
CPT/HCPCS: 32555; 36415; 36416; 71045; 71275; 74176; 80048; 80053; 80061; 80306; 80307; 80503; 81003; 82042; 82150; 82465; 82607; 82746; 82945; 82962; 83036; 83540; 83550; 83615; 83735; 83880; 83986; 84075; 84100; 84145; 84157; 84315; 84443; 84478; 84484; 84560; 85025; 85610; 87015; 87070; 87075; 87102; 87116; 87205; 87206; 87801; 87806; 88112; 88305; 89050; 93005; 93306; 94664; 96372; 96374; 96376; 99285; G0378; J1644; J1815; J1940; J3475; Q9967

== ENCOUNTER → 2023-07-18 15:34 | Outpatient (BNVA) | payer MEDICARE, MEDICAID, SELFPAY | PROVIDERS: PCP Family Medicine; Referring Provider Nurse Practitioner Family; Visit Provider Internal Medicine Pulmonary Disease | DX: R18.8 Other ascites; J44.9 Chronic obstructive pulmonary disease, unspecified; J90 Pleural effusion, not elsewhere classified; F17.210 Nicotine dependence, cigarettes, uncomplicated; K74.60 Unspecified cirrhosis of liver | CPT/HCPCS: 71046; 99204 ==

== ENCOUNTER 2023-07-29 12:00 | Day surgery (SDC) | payer MEDICARE, MEDICAID, SELFPAY ==
[2023-07-29 12:20] VITALS: BP 146/74; PULSE 78; RESP 18; TEMP 36.4; O2SAT 95
[2023-07-29 12:23] VITALS: BMI 24.9
--- NOTE | 2023-07-29 12:33 | US_ITS ---
WS: [id number] ULTRASOUND-GUIDED THERAPEUTIC PARACENTESIS Procedure, risks, and complications have been explained to the patient. Consent is obtained. Utilizing aseptic technique and 1% buffered lidocaine, a small dermatome was made through which a 5 F rench Yueh catheter was inserted. Approximately 6000 ml of clear peritoneal fluid was obtained witho ut difficulty. No complications encountered. IMPRESSION: Uncomplicated paracentesis yielding 6000 ml of peritoneal fluid.
[2023-07-29] MEDS: lidocaine 1% INJ 10 mL (per mL) 20 ML SUBCUT (13:45)
[2023-07-29] MEDS: albumin 50 G/200 ML BAG 60 G IV (14:07)
== END 2023-07-29 15:00 | disposition home or self-care (01) ==
LOC: GILAB 12:02
PROVIDERS: Radiology Diagnostic Radiology; PCP Family Medicine; Visit Provider Internal Medicine Pulmonary Disease
PROC: (CPT 49082; principal; 2023-07-29 13:00)
DX: R18.8 Other ascites (principal); K74.60 Unspecified cirrhosis of liver; R14.0 Abdominal distension (gaseous)
CPT/HCPCS: 49083; 96365; P9046

== ENCOUNTER 2023-08-01 09:08 | Outpatient (CLI) | payer MEDICARE, MEDICAID, SELFPAY ==
--- NOTE | 2023-08-01 09:12 | XR_ITS ---
WS: [id number] PA and lateral chest, 08/01/2023 Clinical Data: left pleural effusion Comparison: Two-view chest, 07/18/2023 Findings: The large left pleural effusion has not changed. The right lung is clear. The heart size is at the same. There are midline sternotomy sutures. No pneumothorax or pneumonia is seen. Impression: No change in large left pleural effusion.
== END 2023-08-01 09:09 | disposition home or self-care (01) ==
LOC: RAD 09:09
PROVIDERS: PCP Family Medicine; Visit Provider Internal Medicine Pulmonary Disease
DX: J90 Pleural effusion, not elsewhere classified (principal)
CPT/HCPCS: 71046

== ENCOUNTER 2023-08-02 06:53 | Day surgery (SDC) | payer MEDICARE, MEDICAID, SELFPAY ==
[2023-08-02] VITALS (8 sets, daily range): BP systolic 129–167; BP diastolic 64–79; PULSE 65–78; RESP 20–22; TEMP 36.8; O2SAT 98–99; BMI 23.6
--- NOTE | 2023-08-02 08:05 | XR_ITS ---
WS: [id number] Portable AP upright chest, 08/02/2023 Clinical Data: post thoracentesis Comparison: Two-view chest, 08/01/2023 Findings: Almost all of the left pleural effusion has been removed. There is a small residual left lo wer lateral pneumothorax. The right lung is fully inflated. The heart is normal. Impression: Marked decrease in left pleural effusion.
[2023-08-02] MEDS: acetaminophen 325 mg Tablet 650 MG PO (08:31)
--- NOTE | 2023-08-02 08:31 | PM.OUTPTPROC ---
Outpatient Procedures Thoracentesis Consent signed and on chart: Yes Time Out Performed: Yes Procedure: therapeutic thoracentesis Location: Left Local anesthetic used: lidocaine 1% Bedside ultrasound used: yes, pleural effusion confirmed and location marked Preparation: sterile prep and drape and 10 blade used to make tremayne in skin Amount of fluid obtained (mL): 1,540 Fluid: clear Size of needle used: 21 Post Procedure Exam: awake, alert, normal BP and normal SpO2 Post-procedure chest x-ray ordered: Yes Estimated blood loss (mL): 5 Patient Tolerated Procedure: well, no complications and other (Patient had trapped unexpanded lung) Procedure Note: Pulmonary & Critical Care Medicine Procedure - Ultrasound guided Thoracentesis Procedure: CPT code 39233 thoracentesis, needle or catheter, aspiration of the pleural space; with imaging guidance Indication: Worsening left pleural effusion. C56.2 Special Systems Technician(s): Oleg Mixon MD [facility] Clinical history: Mr. Altaf winters 68 year old male with PMH CAD had 3-4 stents and then s/p CABG in 2014; Type 2 DM, diastolic heart failure with last echocardiogram in November 2021, history of liver cirrhosis secondary to alcohol abuse in the past, referred by Dr Otilio Torres for COPD/Empysema. pt has Liver cirrohosis and portal hypertension - and he is scheduled to see Hepataloogist in [place] on 08/07/23. he was seeing Dr. Fry previously - Unclear etiology. Perhaps he has underestimated his drinking history. Previously MRCP didn't show particularly sclerosing cholangititis. tells me he drank several drinks for everyday for 6 months - about 10 years ago and since then he does not want to drink. Patient was admitted in October 2022 for abdominal ascites and fluid overload, left pleural effusion-he underwent thoracentesis and fluid was transudative. At that time he had trapped lung expanded lung. His chest x-ray again showed worsening left pleural effusion and physical examination showed abdominal distention He underwent paracentesis on 07/29/2023-drained 6 L fluid. Still complaining of dyspnea. He is scheduled for surgical procedure his scrotum on 08/07/2023: Prior to procedure-plan is to do therapeutic thoracentesis to help with his breathing. Hence he is here today. Technique: The study was performed in an ACR accredited facility. Medication reconciliation form reviewed and any changes related this procedure resolved. Report: The procedure for thoracentesis was explained to the patient including the risks, benefits and possible complications. The patient was given the opportunity to ask questions, wished to proceed, and signed the written informed consent form. Using ultrasound guidance, a safe route of access was identified into the left pleural space. The site was then prepped and draped using maximal sterile barrier technique. The 1% lidocaine was used for local anesthetic. With sonographic guidance, a 6 Yi thoracentesis catheter was placed with return of 5 cc straw-colored pleural fluid. The catheter was slipped into the pleural cavity and approximately 1.5 L of straw-colored pleural fluid was removed. The patient tolerated the procedure well without any immediate complications. Impression: 1. Successful ultrasound-guided left thoracentesis with removal of approximately 1.5 L of straw-colored pleural fluid. Fluid analysis shows transudative. ICD-10 code-J90 pleural effusion, not elsewhere classified Postprocedure-chest x-ray showed unexpanded left lung similar to October 2022. Patient may have trapped lung physiology and was counseled that he will have fluid reaccumulation.
--- NOTE | 2023-08-02 09:02 | XR_ITS ---
WS: [email or web address] Portable AP upright chest, 08/02/2023, 0859 hours Clinical Data: potential post procedure pneumothorax left side Comparison: Portable chest, 08/02/2023, 0727 hours Findings: There is a small residual left effusion. Again there is a small inferior lateral pneumothor ax. The right lung is fully expanded. Impression: 1. Small residual left pleural effusion following thoracentesis. 2. Small localized inferior left lateral pneumothorax.
[2023-08-02 09:08] LABS: Body Fluid Polynuclear #Cells 0.015; Body Fluid WBC 133 /uL; Monocytes # Body Fluid 0.118
[2023-08-02 10:10] LABS: Albumin Body Fluid 0.6 g/dL; Amylase Body Fluid 14 U/L; Apprearance, Body Fluid CLOUDY; Cholesterol Body Fluid 10 mg/dL (0-200); Color, Body Fluid YELLOW; Fluid Alkaline Phos. 22 IU/L; LDH Body Fluid 35 U/L; Triglycerides Body Fluid 23 mg/dL (0-150); Uric Acid Body Fluid 4 mg/dL
[2023-08-02 10:11] LABS: Total Protein Pleural Fluid 0.9 g/dL
[2023-08-02 10:14] LABS: Fluid Laterality LEFT; PATH Referral YES
[2023-08-02 10:16] LABS: Cyto Order Verification Order Verified
== END 2023-08-02 10:29 | disposition home or self-care (01) ==
LOC: GILAB 06:54
PROVIDERS: PCP Family Medicine; Visit Provider Internal Medicine Pulmonary Disease
PROC: (CPT 32554; principal; 2023-08-02 07:30)
DX: R06.02 Shortness of breath (principal); J90 Pleural effusion, not elsewhere classified; I25.10 Atherosclerotic heart disease of native coronary artery without angina pectoris; Z95.5 Presence of coronary angioplasty implant and graft; Z95.1 Presence of aortocoronary bypass graft; I50.30 Unspecified diastolic (congestive) heart failure; J44.9 Chronic obstructive pulmonary disease, unspecified; K70.2 Alcoholic fibrosis and sclerosis of liver
CPT/HCPCS: 32555; 71045; 80503; 82042; 82150; 82465; 82945; 83615; 83986; 84075; 84157; 84315; 84478; 84560; 87015; 87070; 87075; 87102; 87116; 87205; 87206; 87801; 88112; 89050

== ENCOUNTER 2023-08-20 12:01 | Emergency (ER) | payer MEDICARE, MEDICAID, SELFPAY ==
[2023-08-20] VITALS (25 sets, daily range): BP systolic 120–160; BP diastolic 64–106; PULSE 77–92; RESP 12–25; TEMP 36.9; O2SAT 94–100
--- NOTE | 2023-08-20 12:03 | XRR_ITS ---
PROCEDURE INFORMATION: Exam: XR Chest Exam date and time: 08/20/2023 12:36 PM Age: 68 years old Clinical indication: Shortness of breath; Prior surgery; Surgery date: 6+ months; Surgery type: Open heart; Patient HX: HX of testicular cancer; Additional info: SOB TECHNIQUE: Imaging protocol: Radiologic exam of the chest. Views: 1 view. COMPARISON: CR XR chest 1V portable [id number] 08/02/2023 8:58 AM FINDINGS: Lungs: The left upper lobe and right lung are clear. No consolidation. Pleural spaces: Large left lung opacity consistent with pleural effusion. Prior examination showed pneumothorax in the left lower lobe. This portion of the lung is obscured by pleural effusion on current examination. Heart/Mediastinum: Unremarkable. No cardiomegaly. Bones/joints: Metallic sternotomy wires are present. XR/XR chest 1V portable [id number] IMPRESSION: 1. Large pleural effusion new since prior 2. Metallic sternotomy wires seen. 3. Otherwise negative examination of the chest
--- NOTE | 2023-08-20 12:05 | ECG_ITS ---
[facility] Test Date: 2023-08-20 Pat Name: Altaf Rascon Department: Room: Gender: Male Registered Physical Therapist: : [id number] Requested By: Rachelle Cormier Order Number: [id number] Leonard MD: Nell Hilton M.D. Measurements Intervals [place] Rate: 91 P: 73 AL: 126 QRS: 60 QRSD: 97 T: 57 QT: 386 QTc: 475 Interpretive Statements SINUS RHYTHM WITH OCCASIONAL SUPRAVENTRICULAR PREMATURE COMPLEXES Compared to ECG 10/25/2022 23:28:09 No significant changes Electronically Signed On 08-20-2023 21:21:08 CDT by Nell Hilton M.D. [email or web address]).[email or web address].Digify/store/NU/[id number]
--- NOTE | 2023-08-20 14:04 | ED_ITS ---
HPI - SOB/Dyspnea 2 General: Chief Complaint: Shortness of Breath/Dyspnea Stated Complaint: sob Time Seen by Provider: 08/20/23 13:57 History of Present Illness: HPI Narrative: 68 year old male with PMH CAD had 3-4 st ents and then s/p CABG in 2015; Type 2 DM, diastolic heart failure, history of liver cirrhosis secondary to alcohol abuse in the past, and COPD who presents to the emergency room with shortness of breath and swelling. He has large volume ascites and a large pleural effusion that were drained few weeks ago by pulmonology. He says he is continued to swell and now he is very short of breath no abdominal tenderness. No nausea or vomiting. No altered mental status. No cough. No fever. Review of Systems 2 Narrative: Constitutional symptoms: Negative except as documented in HPI. Skin symptoms: Negative except as documented in HPI. Eye symptoms: Negative except as documented in HPI. ENMT symptoms: Negative except as documented in HPI. Respiratory symptoms: Negative except as documented in HPI. Cardiovascular symptoms: Negative except as documented in HPI. Gastrointestinal symptoms: Negative except as documented in HPI. Genitourinary symptoms: Negative except as documented in HPI. Musculoskeletal symptoms: Negative except as documented in HPI. Neurologic symptoms: Negative except as documented in HPI. Psychiatric symptoms: Negative except as documented in HPI. Endocrine symptoms: Negative except as documented in HPI. PFSH ED 2 PFSH: Medical History Hx of diabetes mellitus History of asthma Hx of acute arthritis H/O: HTN (hypertension) Controlled type 2 diabetes mellitus with diabetic neuropathy Neck pain Genital warts on topical treatment with imiquimod Cigarette smoker motivated to quit Chronic neck and back pain Chronic low back pain CAD (coronary artery disease) DDD (degenerative disc disease), lumbar Encounter for long-term opiate analgesic use Generalized osteoarthritis Carpal tunnel syndrome Surgical History Hx of angioplasty Hx of coronary artery bypass surgery Family History Other CAD (coronary artery disease) Diabetes Hypertension Social History Smoking and tobacco/nicotine status: current every day tobacco/nicotine user cigarettes Packs smoked per day: 1.5 Years cigarettes smoked: 51 [ Other cigarette details: Started at age 17] Second hand smoke exposure: No Alcohol intake: former Substance/Drug Use: never Physical Exam 2 Narrative: EXAM NARRATIVE: General: Alert, no acute distress. Skin: Warm, dry. Head: Normocephalic, atraumatic. Neck: Supple, trachea midline. Eye: Extraocular movements are intact. Ears, nose, mouth and throat: mucosa moist. Cardiovascular: Regular, Normal peripheral perfusion. 3+ edema of the legs and abdominal wall. Respiratory: Diminished breath sounds left lower lung., respirations are non- labored, breath sounds are equal, Symmetrical chest wall expansion. Gastrointestinal: Soft but distended abdomen, normal bowel sounds. Musculoskeletal: Normal ROM, no deformity. Neurological: Alert and oriented, No focal neurological deficit observed. Psychiatric: Cooperative, appropriate mood & affect. Course 2 Vital Signs: Vital signs: Vital Signs Temperature 98.4 F 08/20/23 12:10 Pulse Rate 88 08/20/23 15:13 Respiratory Rate 16 08/20/23 12:10 Blood Pressure 130/106 08/20/23 15:13 Pulse Oximetry 95 08/20/23 15:13 Oxygen Delivery Me thod Room Air 08/20/23 15:13 MDM - SOB/Dyspnea Medical Decision Making Medical decision making: Differential diagnosis including but not limited to and based on the above HPI, review of systems and physical exam: Patient with recurrent ascites, edema and pleural effusion. Orders placed to evaluate differential diagnosis based on the above differential, HPI and physical exam Lab Review: Laboratory results were reviewed and interpreted by myself the emergency room physician. White count is 7. Hemoglobin is 11.5. Platelets are 83. BUN and creatinine are 15 and 1.0. INR is 1.4. Chest x-ray: Chest x-ray shows a large left effusion. This is recurrent. This was reviewed and interpreted by myself the ER physician. Consultation: I spoke with card grinder on-call who had previously done a thoracentesis. He had done this for presurgical request. However he says he would not repeat as it we will just recur. He recommends paracentesis through IR. Consultation: I contacted the IR department and outpatient paracentesis is being scheduled. Reexamination: Lab Data 08/20/23 13:31 08/20/23 13:31 Labs/Radiology: Radiology Impressions Chest X-Ray 08/20/23 12:03 IMPRESSION: 1. Large pleural effusion new since prior 2. Metallic sternotomy wires seen. 3. Otherwise negative examination of the chest Laboratory Results WBC 7.17 10^3/uL (3.29-11.43) 08/20/23 13:31 RBC 3.51 10^6/uL (3.85-5.65) L 08/20/23 13:31 Hgb 11.50 g/dL (11.27-16.99) 08/20/23 13:31 Hct 35.6 % (37-53) L 08/20/23 13:31 MCV 101.4 fl (82-101) H 08/20/23 13:31 MCH 32.8 pg (27-33) 08/20/23 13:31 MCHC 32.3 g/dL (30-55) 08/20/23 13:31 RDW 14.6 % (12.1-15.1) 08/20/23 13:31 Plt Count 83 10^3/cmm (157-399) L 08/20/23 13:31 MPV 11.2 fL (7.4-10.4) H 08/20/23 13:31 Neut % (Auto) 75.5 % 08/20/23 13:31 Lymph % (Auto) 11.6 % 08/20/23 13:31 [place] % (Auto) 9.5 % 08/20/23 13:31 Eos % (Auto) 2.1 % 08/20/23 13:31 Baso % (Auto) 0.7 % 08/20/23 13:31 Neut # (Auto) 5.42 10^3/uL (1.8-7.7) 08/20/23 13:31 Lymph # (Auto) 0.8 10^3/uL (0.8-4.8) 08/20/23 13:31 [place] # (Auto) 0.7 10^3/uL (0.2-0.9) 08/20/23 13:31 Eos # (Auto) 0.2 10^3/uL (0.0-0.8) 08/20/23 13:31 Baso # (Auto) 0.1 10^3/uL (0.0-0.1) 08/20/23 13:31 Nucleated RBC % (auto) 0 % 08/20/23 13:31 Nucleated RBCs # 0.0 /100WBC 08/20/23 13:31 PT 17.80 SECONDS (12.1-14.9) H 08/20/23 13:31 INR 1.42 (0.8-1.2) H 08/20/23 13:31 APTT 35.6 SECONDS (23.9-36.7) 08/20/23 13:31 Sodium 139 mmol/L (136-145) 08/20/23 13:31 Potassium 3.8 mmol/L (3.5-5.1) 08/20/23 13:31 Chloride 104 mmol/L (98-107) 08/20/23 13:31 Carbon Dioxide 26 mmol/L (22-29) 08/20/23 13:31 Anion Gap 12.8 (5-19) 08/20/23 13:31 BUN 15 mg/dL (8-23) 08/20/23 13:31 Creatinine 1.0 mg/dL (0.7-1.2) 08/20/23 13:31 GFR Calculation 74.5 mL/min (90-130) L 08/20/23 13:31 Glucose 174 mg/dL (65-115) H 08/20/23 13:31 Calculated Osmolality 293 mOsm/kg (285-295) 08/20/23 13:31 Calcium 8.6 mg/dL (8.5-10.5) 08/20/23 13:31 Total Bilirubin 1.9 mg/dL (0.15-1.2) H 08/20/23 13:31 AST 26 U/L (0-40) 08/20/23 13:31 ALT 13 U/L (0-41) 08/20/23 13:31 Alkaline Phosphatase 293 U/L (40-130) H 08/20/23 13:31 NT-Pro-B Natriuret Pep 941 pg/mL (0-125) H 08/20/23 13:31 Total Protein 6.8 g/dL (6.6-8.7) 08/20/23 13:31 Albumin 3.2 g/dL (3.5-5.2) L 08/20/23 13:31 Globulin 3.6 g/dL (1.3-4.6) 08/20/23 13:31 All radiology interpretation(s) finalized by discharge Other Data Assessment and plan: Cirrhosis Ascites Pleural effusion -Patient is not requiring oxygen. No focal abdominal pain today. Setting up outpatient paracentesis. Pulmonology recommends not repeating a thoracentesis. - Discharged home - Discussed findings and plan with patient. Answered any questions. - All laboratory values were reviewed and interpreted personally by myself, the ER physician - All imaging was reviewed and interpreted personally by myself, the ER physician. - Evaluation and treatment of this problem were appropriate in the emergency setting Discharge Plan Discharge Patient Disposition: Home Clinical Impression: Cirrhosis, Ascites, Pleural effusion, Edema Condition: Stable Prescriptions: No Action aspirin 81 mg tablet,delayed release (DR/EC) 81 mg PO DAILY glipizide 5 mg tablet extended release 24hr 5 mg PO DAILY Januvia 100 mg tablet 100 mg PO DAILY gabapentin 400 mg capsule 400 mg PO TID 30 Days Qty: 90 1RF guaifenesin [Mucinex] 600 mg tablet extended release 12hr 600 mg PO Q12H PRN (Reason: Congestion) hydrocodone-acetaminophen 10-325 mg tablet 1 tab PO Q4H PRN (Reason: Pain) alprazolam 0.5 mg tablet 0.25 - 0.5 mg PO Q8H PRN (Reason: Anxiety) Rx Instructions: Take 1/2 to 1 tablet every 8 hours as needed for anxiety nitroglycerin 0.4 mg tablet, sublingual 0.4 mg sublingual PRN PRN (Reason: Chest Pain) dexlansoprazole [Dexilant] 60 mg capsule,biphase delayed releas 60 mg PO BEDTIME fluticasone propion-salmeterol [Wixela Inhub] 250-50 mcg/dose blister with device 1 inh INHALATION BID albuterol sulfate 90 mcg/actuation HFA aerosol inhaler 2 puff INHALATION Q6H PRN (Reason: Shortness Of Breath Or Wheezing) dapagliflozin propanediol [Farxiga] 5 mg tablet 5 mg PO DAILY acyclovir 400 mg tablet 400 mg PO TID PRN (Reason: cold sore) metolazone 5 mg tablet 5 mg PO DAILY Spiriva Respimat 2.5 mcg/actuation mist 2 puff INHALATION DAILY Discharge Orders: Discharge ED (Routine); Ordered 08/20/23 Ordered By: Sylvia Murrieta Referrals: Nathan Torres MD [Primary Care Provider] - (Follow-up for paracentesis tomorrow. With interventional radiology. You have been screened and evaluated and felt safe for discharge. Health conditions do change or evolve sometimes and as such it is important that you follow up with your Primary Doctor to be re checked, 3-5 days is a general good time frame for follow up. You are always welcome to return to the ED for re assessment if your symptoms are worsening or you have new concerns ) Discharge Diet: Usual diet Discharge Activity: Increase activity as tolerated Patient Instructions: Ascites (ED), Opioid Safety, Pain Management Coding Level of Care Code ED Electronics Research Engineer for Parag Pastor
[2023-08-20 14:10] LABS: Basophils # 0.1 10^3/uL (0.0-0.1); Basophils % 0.7 %; Eosinophils # 0.2 10^3/uL (0.0-0.8); Eosinophils % 2.1 %; Hematocrit 35.6 % (37-53); Lymphocytes # 0.8 10^3/uL (0.8-4.8); Lymphocytes % 11.6 %; Mean Corpuscular HGB Conc 32.3 g/dL (30-55); Mean Corpuscular Hemoglobin 32.8 pg (27-33); Mean Corpuscular Volume 101.4 fl (82-101); Mean Platelet Volume 11.2 fL (7.4-10.4); Monocytes # 0.7 10^3/uL (0.2-0.9); Monocytes % 9.5 %; Neutrophils # 5.42 10^3/uL (1.8-7.7); Neutrophils % 75.5 %; Nucleated Red Blood Cells % 0 %; Platelet Count 83 10^3/cmm (157-399); Red Blood Count 3.51 10^6/uL (3.85-5.65); Red Cell Distribution Width 14.6 % (12.1-15.1); White Blood Count 7.17 10^3/uL (3.29-11.43)
[2023-08-20] MEDS: ondansetron 2 mg/ML SDV 2 mL 4 MG IVP (14:13)
[2023-08-20] MEDS: morphine 4 mg/mL SDV 1 mL IVP (14:13)
[2023-08-20 14:35] LABS: Alanine Aminotransferase 13 U/L (0-41); Albumin Level 3.2 g/dL (3.5-5.2); Alkaline Phosphatase 293 U/L (40-130); Anion Gap 12.8 (5-19); Aspartate Amino Transferase 26 U/L (0-40); Blood Urea Nitrogen 15 mg/dL (8-23); Calcium 8.6 mg/dL (8.5-10.5); Carbon Dioxide 26 mmol/L (22-29); Chloride 104 mmol/L (98-107); Creatinine Clr Calc Pharmacy 69.2036; Globulin 3.6 g/dL (1.3-4.6); Glomerular Filtration Rate 74.5 mL/min (90-130); Glucose 174 mg/dL (65-115); NT Pro B Type Natriuretic Pept 941 pg/mL (0-125); Osmolality Calculated 293 mOsm/kg (285-295); Potassium 3.8 mmol/L (3.5-5.1); Sodium 139 mmol/L (136-145); Total Bilirubin 1.9 mg/dL (0.15-1.2); Total Protein 6.8 g/dL (6.6-8.7)
[2023-08-20 14:40] LABS: INR 1.42 (0.8-1.2)
[2023-08-20 14:41] LABS: Partial Thromboplastin Time 35.6 SECONDS (23.9-36.7)
[2023-08-20] MEDS: FUROsemide 10 mg/mL SDV 10mL 80 MG IVP (15:00)
== END 2023-08-20 17:35 | disposition home or self-care (01) ==
PROVIDERS: Emergency Medicine; Emergency Provider Emergency Medicine; PCP Family Medicine
DX: K74.60 Unspecified cirrhosis of liver (principal); R18.8 Other ascites; J90 Pleural effusion, not elsewhere classified; Z79.82 Long term (current) use of aspirin; Z79.84 Long term (current) use of oral hypoglycemic drugs; F17.210 Nicotine dependence, cigarettes, uncomplicated; I10 Essential (primary) hypertension; E11.42 Type 2 diabetes mellitus with diabetic polyneuropathy; I25.10 Atherosclerotic heart disease of native coronary artery without angina pectoris; Z95.1 Presence of aortocoronary bypass graft
CPT/HCPCS: 36415; 71045; 80053; 83880; 85025; 85610; 85730; 93005; 96374; 96375; 99285; J1940; J2270; J2405

== ENCOUNTER → 2023-08-21 12:14 | Day surgery (SDC) | payer MEDICARE, MEDICAID, SELFPAY ==
[2023-08-21 12:40] VITALS: BP 126/65; PULSE 74; RESP 18; TEMP 36.7; O2SAT 98
--- NOTE | 2023-08-21 12:45 | US_ITS ---
WS: [id number] ULTRASOUND-GUIDED PARACENTESIS CLINICAL INFORMATION: Ascites Procedure Informed consent: The risks, benefits, and alternatives of the procedure were discussed with the ty ent. Verbal and written consent was obtained. Timeout: A timeout was performed to confirm the correct patient, procedure, and site. Preparation: A suitable skin site was identified. The patient was prepped and draped in usual sterile fashion. Lidocaine 1% was used for local anesthesia. Catheter: 4 Faroese One-step Yueh catheter. Side: LEFT lower quadrant. Fluid Volume: 6700 ml Color: Clear yellow DISPOSITION: Discarded safely. Complications: None. Patient disposition: Discharged from the department in stable condition. IMPRESSION: Uncomplicated ultrasound-guided paracentesis. Removal of [id number]
[2023-08-21 13:38] VITALS: BP 123/61; PULSE 72; RESP 18; O2SAT 98
[2023-08-21 13:56] VITALS: BP 110/55; PULSE 71; RESP 18; O2SAT 98
[2023-08-21 14:10] VITALS: BMI 23.6
== END ==
LOC: GILAB 12:15
PROVIDERS: Radiology Neuroradiology; PCP Family Medicine; Visit Provider Internal Medicine Pulmonary Disease
PROC: (CPT 49082; principal; 2023-08-21 13:00)
DX: R18.8 Other ascites (principal)
CPT/HCPCS: 49083